=== PATIENT | male | born 1970 | race Caucasian/White ===

== ENCOUNTER → 2016-09-01 | Outpatient (CLI) | payer MEDICARE ==
[2014-02-16 17:00] VITALS: BP 128/79
[~2016-09-01] MED LIST: DOCU-27 PO; FENT1PAT15 TD; GADOBUTROL 7.5 MMOL/7.5 ML VIAL IV ONE; GLUC1TAB32 PO; MAGN400C PO; META800T PO; META800T21 PO; METH-38 PO; MULT-460 PO; OMEG-33 PO; OXYC-244 PO; OXYC-250 PO; TOPI100T90 PO; TOPI25TA32 PO
--- NOTE | 2016-09-01 13:45 | KCIC ---
PROCEDURE MRI cervical spine without and with contrast. HISTORY Spondylosis, multiple surgeries, mild neck pain, left hand numbness TECHNIQUE Multiplanar, multi sequential pre and post contrast MR imaging was performed of the cervical spine. Contrast: 13 cc Gadavist COMPARISON June 29, 2014 FINDINGS There again has been anterior cervical fusion at C4, C5, C6. Exam does not accurately evaluate integrity of hardware. There are incorporated interbody grafts at C4-5 and C5-C6. There again has been posterior decompression C3 through C7. There is also multilevel posterior fusion hardware with posterior lateral mass screws at C3, C4, C5, and C6 attached to vertical rods as seen previously. There is again nonenhancing T2 and STIR hyperintense signal abnormality of the cord at C5 and C6 not associated with enhancement most compatible with myelomalacia. There is no new significant marrow edema. There is no new abnormality of the cervical medullary junction. Cervical vertebral body stature and AP alignment are unchanged. C2-3: There is again facet degenerative change. Spinal canal is adequate. There is suspected mild neural foramina compromise bilaterally due to facet and uncovertebral degenerative change. C3-C4: Spinal canal and neural foramina are adequate. There is mild right uncovertebral degenerative change. C4-5: Neural foramina and spinal canal are adequate. C5-C6: Spinal canal and neural foramina are adequate. C6-7: Spinal canal remains adequate. There is likely mild narrowing of the left neural foramen by osteophytes, right neural foramen not obviously narrowed. C7-T1: Spinal canal is adequate. There is facet degenerative change. There is possible mild narrowing of the left neural foramen, right neural foramen not significantly narrowed. IMPRESSION There again has been anterior cervical fusion C4, C5, C6, also posterior fusion hardware C3 to C6-7 and also posterior decompression C3-C7. There is no new significant cervical spinal stenosis. There is suspected mild neural foramina compromise as stated. There are again foci of myelomalacia of the cervical cord. Electronically signed by: Parker Calzada MD (Sep 01, 2016 13:44:10)
== END | disposition home or self-care (01) ==
LOC: KCIC MRI 12:14
PROVIDERS: ATTEND Neurological Surgery
DX: M47.892 Other spondylosis, cervical region (principal)
CPT/HCPCS: 72156; A9585

== ENCOUNTER → 2016-09-04 | Outpatient (CLI) | payer MEDICARE ==
[2014-02-16 17:00] VITALS: BP 128/79
--- NOTE | 2016-09-04 14:06 | KCIC ---
MR LUMBAR SPINE HISTORY:Reason For StudyReason: LUMBAR RADICULOPATHY / Spl. Instructions: Prev KCIC / History: Prev surgery. LBP with worsening right leg weakness. 13cc Gadavist COMPARISON: MRI lumbar spine from November 21, 2013 Technique: Sagittal T2, sagittal STIR, and sagittal T1-weighted images were obtained. Additional axial T1 and T2 weighted imaging was also performed. Post contrast T1 weighted images were performed after intravenous administration of gadolinium based contrast. FINDINGS: There is very subtle grade 1 anterolisthesis of L5 on S1. Alignment and curvature is otherwise within normal limits. There is no compression fracture or deformity. Bone marrow signal is within normal limits. The conus terminates normally at the level of L1. Visualized intra-abdominal contents are within normal limits. No abnormal intrathecal enhancement. At L5-S1 there is very subtle grade 1 degenerative anterolisthesis from bilateral L5 pars defects. This results in mild bilateral foraminal narrowing. At L4-L5 there has been performance of a laminectomy. There is a small amount of enhancing tissue adjacent to the descending left L5 nerve could represent epidural fibrosis. There is bilateral facet arthropathy which causes encroachment of the bilateral foramina resulting in mild to moderate bilateral foraminal narrowing. At L3-L4 there is mild bilateral foraminal narrowing from mild facet arthropathy. Impression: - There is subtle grade 1 anterolisthesis of L5 on S1 with bilateral L5 pars defects. This results in bilateral mild neural foraminal narrowing. - There is mild to moderate bilateral foraminal narrowing at L4-5 from facet arthropathy which encroaches upon the foramina. There is also a small amount of enhancing tissue in the left ventral epidural space which could represent epidural fibrosis. Electronically signed by: Rick Kat (Sep 04, 2016 14:04:57)
== END | disposition home or self-care (01) ==
LOC: KCIC MRI 12:10
PROVIDERS: ATTEND Neurological Surgery
DX: M54.16 Radiculopathy, lumbar region (principal)
CPT/HCPCS: 72158; A9585

== ENCOUNTER 2017-01-27 13:03 | Inpatient (IN) | payer MEDICARE ==
[~2017-01-27] VITALS: Ht 193 cm; Wt 131.7 kg
[~2017-01-27 13:03] MED LIST changes: +DOCU-109 PO; -DOCU-27 PO; -GADOBUTROL 7.5 MMOL/7.5 ML VIAL IV ONE; +META-21 PO; -META800T21 PO; -OXYC-244 PO; -OXYC-250 PO; +OXYC-327 PO; +OXYC-328 PO; +TOPI100T8 PO; -TOPI100T90 PO; -TOPI25TA32 PO; +TOPI25TA52 PO
[2017-01-27 14:37] LABS: BASO # 0.1 x10^3/uL (0.0-0.2); BASO % 1 % (0-3); EOS % 1 % (0-3); HEMATOCRIT 52.6 % (39.0-53.0); HEMOGLOBIN 17.7 g/dL (13.0-17.5); LYMPH # 1.9 x10^3/uL (1.0-4.8); LYMPH % 25 % (24-48); MEAN CORPUSCULAR HEMOGLOBIN 30 pg (25-35); MEAN CORPUSCULAR HGB CONC 34 g/dL (31-37); MEAN CORPUSCULAR VOLUME 90 fL (79-100); MONO % 5 % (0-9); NEUT % 68 % (31-73); PLATELET COUNT 234 x10^3/uL (140-400); RED BLOOD COUNT 5.83 x10^6/uL (4.30-5.70); RED CELL DISTRIBUTION WIDTH 13.3 % (11.5-14.5); WHITE BLOOD COUNT 7.4 x10^3/uL (4.0-11.0)
[2017-01-27 14:53] LABS: CALCIUM 9.4 mg/dL (8.5-10.1); CREATININE 0.9 mg/dL (0.7-1.3); GFR 91.3; POTASSIUM 3.8 mmol/L (3.5-5.1)
[2017-01-27] MEDS ORDERED: MORPHINE SULFATE 4 MG/ML DISP.SYRIN. IV ONE ×2 (15:00→16:00)
--- NOTE | 2017-01-27 15:34 | EKG ---
[facility] [address] [place] [address] Test Date: 2017-01-27 Test Time: 14:45:39 Pat Name: NICO GIBSON Department: Room: Gender: M [employer] Specialist: : 1970 Requested By: Anna HANCOCK Order Number: [id number] Reading MD: Alejandro Cedillo Measurements Intervals [place] Rate: 61 P: 11 VT: 216 QRS: -87 QRSD: 88 T: 39 QT: 400 QTc: 404 Interpretive Statements SINUS RHYTHM RBBB Electronically Signed On 02-02-2017 8:35:51 CDT by Alejandro Cedillo
--- NOTE | 2017-01-27 15:48 | RAD ---
Exam performed: CT scan of the head and cervical spine without contrast. Date of Service: 01/27/17 Comparison:CT cervical spine from 07/29/12 Clinical History: Weakness Technique: Helical acquisitions are obtained from the foramen magnum to the vertex without intravenous administration of contrast. In addition helical acquisitions are obtained through the cervical spine. Sagittal and coronal reformatted images are obtained and reviewed. CT scan head findings: The ventricular system is midline without evidence of dilatation. Normal alfaro-white differentiation is maintained. There is no extra axial fluid collection, intraparenchymal hemorrhage or mass lesion. The visualized orbits, paranasal sinuses and the mastoid air cells are clear. The calvarium is intact. Impression: 1. Normal non-contrast CT of the brain. End impression CT cervical spine findings: Straightening of the cervical curvature. There are postoperative changes of anterior cervical fusion involving C4, C5 and C6 level with anterior plate and bilateral screws. Wide laminectomies are seen at C3-C6. The vertebral body heights are maintained. There is narrowing of C3/4 and C6/7 disc spaces. Near bony fusion of C4/5, C5/6 noted. There is no alma rosa or retrolisthesis. There are no fractures. No prevertebral soft tissue swelling is identified. No definite lymphadenopathy or masses are seen within the neck. The visualized thyroid and salivary glands appears preserved. Impression: Postoperative changes of anterior spinal fusion with bilateral laminectomies at C3-C6. No acute abnormality seen in the CT scan cervical spine. PQRS Compliance Statement: One or more of the following individualized dose reduction techniques were utilized for this examination: 1. Automated exposure control 2. Adjustment of the mA and/or kV according to patient size 3. Use of iterative reconstruction technique
--- NOTE | 2017-01-27 16:19 | PHYS DOC ---
Past Medical History Past Medical History: Other Additional Past Medical Histor: chronic back pain Past Surgical History: Appendectomy, Other Additional Past Surgical Histo: carpel tunnel,rt elbow, left shoulder, 2 upper back surgery, one lower back Alcohol Use: None Drug Use: None Adult General Chief Complaint Chief Complaint: NEURO SYMPTOMS/DEFICITS [facility] HPI Patient is a 46 year old [f__sex] who presents with [] Review of Systems Review of Systems Constitutional: Denies fever or chills [] Eyes: Denies change in visual acuity, redness, or eye pain [] HENT: Denies nasal congestion or sore throat [] Respiratory: Denies cough or shortness of breath [] Cardiovascular: No additional information not addressed in HPI [] GI: Denies abdominal pain, nausea, vomiting, bloody stools or diarrhea [] : Denies dysuria or hematuria [] Musculoskeletal: Denies back pain or joint pain [] Integument: Denies rash or skin lesions [] Neurologic: Denies headache, focal weakness or sensory changes [] Endocrine: Denies polyuria or polydipsia [] Current Medications Current Medications Current Medications Medications (Trade) Dose Ordered Sig/[facility] Start Time Stop Time Status Last Admin Dose Admin Acetaminophen (Tylenol) 650 mg PRN Q4HRS PRN 01/27/17 17:00 01/28/17 16:59 Morphine Sulfate 2 mg PRN Q2HR PRN 01/27/17 17:00 01/28/17 16:59 Nitroglycerin (Nitrostat) 0.4 mg PRN Q5MIN PRN 01/27/17 17:00 01/28/17 16:59 Ondansetron HCl (Zofran) 4 mg PRN Q8HRS PRN 01/27/17 17:00 01/28/17 16:59 Allergies Allergies Allergies Coded Allergies Type Severity Reaction Last Updated Verified No Known Drug Allergies 02/16/14 No Physical Exam Physical Exam Constitutional: Well developed, well nourished, no acute distress, non-toxic appearance. [] HENT: Normocephalic, atraumatic, bilateral external ears normal, oropharynx moist, no oral exudates, nose normal. [] Eyes: PERRLA, EOMI, conjunctiva normal, no discharge. [] Neck: Normal range of motion, no tenderness, supple, no stridor. [] Cardiovascular:Heart rate regular rhythm, no murmur [] Lungs & Thorax: Bilateral breath sounds clear to auscultation [] Abdomen: Bowel sounds normal, soft, no tenderness, no masses, no pulsatile masses. [] Skin: Warm, dry, no erythema, no rash. [] Back: No tenderness, no CVA tenderness. [] Extremities: No tenderness, no cyanosis, no clubbing, ROM intact, no edema. [] Neurologic: Alert and oriented X 3, normal motor function, normal sensory function, no focal deficits noted. [] Psychologic: Affect normal, judgement normal, mood normal. [] Current Patient Data Vital Signs Vital Signs Date Time Temp Pulse Resp B/P (MAP) Pulse Ox O2 Delivery O2 Flow Rate FiO2 01/27/17 16:15 20 98 Room Air 01/27/17 15:46 76 120/81 (94) 01/27/17 13:15 98.9 98.9 Lab Values Laboratory Tests Test 01/27/17 13:15 White Blood Count 7.4 x10^3/uL (4.0-11.0) Red Blood Count 5.83 x10^6/uL (4.30-5.70) H Hemoglobin 17.7 g/dL (13.0-17.5) H Hematocrit 52.6 % (39.0-53.0) Mean Corpuscular Volume 90 fL (79-100) Mean Corpuscular Hemoglobin 30 pg (25-35) Mean Corpuscular Hemoglobin Concent 34 g/dL (31-37) Red Cell Distribution Width 13.3 % (11.5-14.5) Platelet Count 234 x10^3/uL (140-400) Neutrophils (%) (Auto) 68 % (31-73) Lymphocytes (%) (Auto) 25 % (24-48) Monocytes (%) (Auto) 5 % (0-9) Eosinophils (%) (Auto) 1 % (0-3) Basophils (%) (Auto) 1 % (0-3) Neutrophils # (Auto) 5.0 x10^3uL (1.8-7.7) Lymphocytes # (Auto) 1.9 x10^3/uL (1.0-4.8) Monocytes # (Auto) 0.4 x10^3/uL (0.0-1.1) Eosinophils # (Auto) 0.1 x10^3/uL (0.0-0.7) Basophils # (Auto) 0.1 x10^3/uL (0.0-0.2) Sodium Level 141 mmol/L (136-145) Potassium Level 3.8 mmol/L (3.5-5.1) Chloride Level 104 mmol/L (98-107) Carbon Dioxide Level 26 mmol/L (21-32) Anion Gap 11 (6-14) Blood Urea Nitrogen 11 mg/dL (8-26) Creatinine 0.9 mg/dL (0.7-1.3) Estimated GFR (Cockcroft-Gault) 91.3 Glucose Level 126 mg/dL (70-99) H Calcium Level 9.4 mg/dL (8.5-10.1) Troponin I Quantitative < 0.017 ng/mL (0.000-0.055) Laboratory Tests 01/27/17 13:15 Laboratory Tests 01/27/17 13:15 EKG EKG 1441 SR, 61, no stemi, TWI V1 and V2[] Radiology/Procedures Radiology/Procedures no acute findings on CT[] Course & Med Decision Making Course & Med Decision Making Pertinent Labs and Imaging studies reviewed. (See chart for details) [] Dragon Disclaimer Dragon Disclaimer This electronic medical record was generated, in whole or in part, using a voice recognition dictation system. Departure Departure Impression: Primary Impression: Chest pain Additional Impressions: Abnormal EKG Chronic back pain Left arm weakness Disposition: ADMITTED INPATIENT Admitting Physician: La Ho Condition: STABLE Referrals: JOSE ESCAMILLA MD (PCP) Problem Qualifiers Anna HANCOCK MD Jan 27, 2017 16:19
[2017-01-27] MEDS ORDERED: ONDANSETRON PF 4 MG/2 ML VIAL. IV PRN (17:00)
[2017-01-27] MEDS ORDERED: ACETAMINOPHEN 325 MG TABLET. PO PRN (17:00)
[2017-01-27] MEDS ORDERED: MORPHINE SULFATE 2 MG/ML DISP.SYRIN. IV PRN (17:00)
--- NOTE | 2017-01-27 17:21 | RAD ---
AP portable chest radiograph 01/27/2017 Clinical history: Chest pain since earlier today. An AP portable erect digital radiograph of the chest was obtained. Stabilizing rods, pedicle screws, anterior plate and bone screws overlies the mid and lower cervical spine. The cardiac and mediastinal silhouettes are within normal limits in size and configuration. No acute pulmonary infiltrate is seen. No pleural effusion or pneumothorax is noted. The osseous structures are grossly intact. Impression: No acute abnormality is seen.
[2017-01-27] MEDS ORDERED: POLYETHYLENE GLYCOL 3350 17 GM PACKET. PO PRN (17:30)
[2017-01-27] MEDS: NITROGLYCERIN SUBLINGUAL 0.4 MG BOTTLE OF 25. SL PRN ×2 (17:39→17:54)
[2017-01-27] MEDS ORDERED: ASPIRIN CHEWABLE 81 MG TABLET. PO ONE (17:45)
--- NOTE | 2017-01-27 17:55 | PDOC1 ---
History and Physical Date of Admission Date of Admission DATE: 01/27/17 TIME: 17:50 Identification/Chief Complaint Chief Complaint shoulder pain, back pain, chest pain, hand weakness Problems: Source Source: Caregiver, Chart review, Patient History of Present Illness History of Present Illness back pain and chestpain He fell about 2 weeks ago, and has had back pain and left shoulder and near neck pain since. He feels like pain under scapula on the left, pain had gotten worse with light massage at home. He has chronic back pain, is on disability for leg weakness, and has seen Dr. Butler before. Today, pain is worse, 9./10 left back to left anterior chest, not worse with palpation, and he also has new left hand weakness. He has new numbess on a narrow band of his left hand and arm. About 1cm ribbon area of numbness and tingling running appox up the T7 dermatome. feels a little improved in the ER Past Medical History Cardiovascular: No pertinent hx Pulmonary: No pertinent hx GI: No pertinent hx Heme/Onc: No pertinent hx Musculoskeletal: low back pain, Osteoarthritis, Muscle atrophy, Stiffness Rheumatologic: No pertinent hx Infectious disease: No pertinent hx ENT: No pertinent hx Renal/: No pertinent hx Endocrine: No pertinent hx Dermatology: No pertinent hx Past Surgical History Past Surgical History: Other Family History Family History: No Significant Social History ALCOHOL: rare Drugs: None Current Problem List Problem List Problems Medical Problems: (1) Abnormal EKG Status: Acute (2) Chest pain Status: Acute (3) Chronic back pain Status: Acute (4) Left arm weakness Status: Acute Problems: Current Medications Current Medications Current Medications Morphine Sulfate 4 mg 1X ONCE IV Last administered on 01/27/17 15:02; Start 01/27/17 at 15:00; Stop 01/27/17 at 15:01; Status DC Morphine Sulfate 4 mg 1X ONCE IV Last administered on 01/27/17 16:15; Start 01/27/17 at 16:00; Stop 01/27/17 at 16:04; Status DC Ondansetron HCl (Zofran) 4 mg PRN Q8HRS PRN IV NAUSEA/VOMITING; Start 01/27/17 at 17:00; Stop 01/28/17 at 16:59 Morphine Sulfate 2 mg PRN Q2HR PRN IV PAIN; Start 01/27/17 at 17:00; Stop 01/28 at 16:59 Acetaminophen (Tylenol) 650 mg PRN Q4HRS PRN PO FEVER; Start 01/27/17 at 17:00 ; Stop 01/28/17 at 16:59 Nitroglycerin (Nitrostat) 0.4 mg PRN Q5MIN PRN SL CHEST PAIN Last administered on 01/27/17t 17:39; Start 01/27/17 at 17:00; Stop 01/28/17 at 16:59 Docusate Sodium (Colace) 100 mg DAILY PO ; Start 01/28/17 at 09:00; Status UNV Fentanyl (Duragesic 25mcg/ Hr Patch) 1 patch Q3DAYS TD ; Start 01/30/17 at 09:00 ; Status UNV Metaxalone (Skelaxin) 800 mg BID PO ; Start 01/27/17 at 21:00; Status UNV Metaxalone (Skelaxin) 800 mg TID PO ; Start 01/27/17 at 21:00; Status UNV Methocarbamol (Robaxin) 750 mg QID PO ; Start 01/27/17 at 21:00; Status UNV Oxycodone/ Acetaminophen (Percocet 10/325) 2 tab QID PO ; Start 01/27/17 at 21: 00; Status UNV Oxycodone/ Acetaminophen (Percocet 7.5/ 325) 1 tab BID PO ; Start 01/27/17 at 21 :00; Status UNV Topiramate (Topamax) 100 mg DAILY PO ; Start 01/28/17 at 09:00; Status UNV Polyethylene Glycol (miraLAX PACKET) 17 gm PRN DAILY PRN PO CONSTIPATION; Start 01/27/17 at 17:30; Status UNV Polyethylene Glycol (miraLAX PACKET) 17 gm DAILY PO ; Start 01/28/17 at 09:00; Status UNV Aspirin (Children'S Aspirin) 324 mg 1X ONCE PO ; Start 01/27/17 at 17:45; Stop 01/27/17 at 17:46; Status DC Active Scripts Active Reported Robaxin-750 (Methocarbamol) 750 Mg Tablet Unknown Dose PO QID Topamax (Topiramate) 25 Mg Tablet Unknown Dose PO BID Skelaxin (Metaxalone) 800 Mg Tablet 1 Tab PO TID Percocet 10-325 Mg Tablet (Oxycodone/Acetaminophen) 1 Each Tablet 2 Tab PO QID Colace (Docusate Sodium) 100 Mg Capsule 100 Mg PO Metaxalone 800 Mg Tablet 800 Mg PO BID [place] 3 1,000 Mg Softgel ([place]-3 Fatty Acids/Fish Oil) 1 Each Capsule 1 Each PO DAILY06 Magnesium (Magnesium Oxide) 400 Mg Capsule 1 Cap PO Flexi Joint Tablet (Gluc Garcia/Msm/Chondro Garcia A/C/Mn) 1 Each Tablet 1 Each PO DAILY06 Multiple Vitamin (Multivitamin With Minerals) 1 Each Tablet 1 Each PO DAILY05 Percocet 7.5-325 Mg Tablet (Oxycodone/Acetaminophen) 1 Each Tablet 1 Each PO BID FENTANYL 25mcg/hr (Fentanyl) 1 Each Patch.td72 1 Each TD Q3DAYS Topiramate 100 Mg Tablet 100 Mg PO DAILY Allergies Allergies: Coded Allergies: No Known Drug Allergies (Unverified , 02/16/14) ROS General: No: Chills, Night Sweats, Fatigue, Malaise, Appetite, Other PSYCHOLOGICAL ROS: No: Anxiety, Behavioral Disorder, Concentration difficultie , Decreased libido, Depression, Disorientation, Hallucinations, Hostility, Irritablity, Memory difficulties, Mood Swings, Obsessive thoughts, Physical abuse, Sexual abuse, Sleep disturbances, Suicidal ideation, Other Eyes: No Blurry vision, No Decreased vision, No Double vision, No Dry eyes, No Excessive tearing, No Eye Pain, No Itchy Eyes, No Loss of vision, No Photophobia , No Scotomata, No Uses contacts, No Uses glasses, No Other Respiratory: No: Cough, Hemoptysis, Orthopnea, Pleuritic Pain, Shortness of breath, SOB with excertion, Sputum Changes, Stridor, Tachypnea, Wheezing, Other Cardiovascular: No Chest Pain, No Palpitations, No Orthopnea, No Paroxysmal Noc. Dyspnea, No Edema, No Lt Headedness, No Other Gastrointestinal: No Nausea, No Vomiting, No Abdominal Pain, No Diarrhea, No Constipation, No Melena, No Hematochezia, No Other Musculoskeletal: Yes Gait Disturbance, Yes Joint Pain, Yes Joint Stiffness, Yes Joint Swelling, Yes Muscle Pain, Yes Muscular Weakness, Yes Pain In: (back, shoulder) Neurological: Yes Gait Disturbance, Yes Numbness/Tingling, No Behavorial Changes, No Bowel/Bladder ControlChng, No Confusion, No Dizziness, No Headaches, No Impaired Coord/balance, No Memory Loss, No Seizures , No Speech Problems, No Tremors, No Visual Changes, No Weakness, No Other Skin: Yes Dry Skin, No Eczema, No Hair Changes, No Lumps, No Mole Changes, No Mottling, No Nail Changes, No Pruritus, No Rash, No Skin Lesion Changes, No Other, No Acne Physical Exam General: Alert, Oriented X3, Cooperative, mild distress HEENT: EOMI, Mucous membr. 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, some numbness near T7 line down arm dermatome) Vitals Vitals Vital Signs Date Time Temp Pulse Resp B/P (MAP) Pulse Ox O2 Delivery O2 Flow Rate FiO2 01/27/17 17:39 65 144/97 01/27/17 16:15 20 98 Room Air 01/27/17 13:15 98.9 98.9 Labs Labs Laboratory Tests Test 01/27/17 13:15 White Blood Count 7.4 x10^3/uL (4.0-11.0) Red Blood Count 5.83 x10^6/uL (4.30-5.70) Hemoglobin 17.7 g/dL (13.0-17.5) Hematocrit 52.6 % (39.0-53.0) Mean Corpuscular Volume 90 fL (79-100) Mean Corpuscular Hemoglobin 30 pg (25-35) Mean Corpuscular Hemoglobin Concent 34 g/dL (31-37) Red Cell Distribution Width 13.3 % (11.5-14.5) Platelet Count 234 x10^3/uL (140-400) Neutrophils (%) (Auto) 68 % (31-73) Lymphocytes (%) (Auto) 25 % (24-48) Monocytes (%) (Auto) 5 % (0-9) Eosinophils (%) (Auto) 1 % (0-3) Basophils (%) (Auto) 1 % (0-3) Neutrophils # (Auto) 5.0 x10^3uL (1.8-7.7) Lymphocytes # (Auto) 1.9 x10^3/uL (1.0-4.8) Monocytes # (Auto) 0.4 x10^3/uL (0.0-1.1) Eosinophils # (Auto) 0.1 x10^3/uL (0.0-0.7) Basophils # (Auto) 0.1 x10^3/uL (0.0-0.2) Sodium Level 141 mmol/L (136-145) Potassium Level 3.8 mmol/L (3.5-5.1) Chloride Level 104 mmol/L (98-107) Carbon Dioxide Level 26 mmol/L (21-32) Anion Gap 11 (6-14) Blood Urea Nitrogen 11 mg/dL (8-26) Creatinine 0.9 mg/dL (0.7-1.3) Estimated GFR (Cockcroft-Gault) 91.3 Glucose Level 126 mg/dL (70-99) Calcium Level 9.4 mg/dL (8.5-10.1) Troponin I Quantitative < 0.017 ng/mL (0.000-0.055) Laboratory Tests Test 01/27/17 13:15 White Blood Count 7.4 x10^3/uL (4.0-11.0) Red Blood Count 5.83 x10^6/uL (4.30-5.70) Hemoglobin 17.7 g/dL (13.0-17.5) Hematocrit 52.6 % (39.0-53.0) Mean Corpuscular Volume 90 fL (79-100) Mean Corpuscular Hemoglobin 30 pg (25-35) Mean Corpuscular Hemoglobin Concent 34 g/dL (31-37) Red Cell Distribution Width 13.3 % (11.5-14.5) Platelet Count 234 x10^3/uL (140-400) Neutrophils (%) (Auto) 68 % (31-73) Lymphocytes (%) (Auto) 25 % (24-48) Monocytes (%) (Auto) 5 % (0-9) Eosinophils (%) (Auto) 1 % (0-3) Basophils (%) (Auto) 1 % (0-3) Neutrophils # (Auto) 5.0 x10^3uL (1.8-7.7) Lymphocytes # (Auto) 1.9 x10^3/uL (1.0-4.8) Monocytes # (Auto) 0.4 x10^3/uL (0.0-1.1) Eosinophils # (Auto) 0.1 x10^3/uL (0.0-0.7) Basophils # (Auto) 0.1 x10^3/uL (0.0-0.2) Sodium Level 141 mmol/L (136-145) Potassium Level 3.8 mmol/L (3.5-5.1) Chloride Level 104 mmol/L (98-107) Carbon Dioxide Level 26 mmol/L (21-32) Anion Gap 11 (6-14) Blood Urea Nitrogen 11 mg/dL (8-26) Creatinine 0.9 mg/dL (0.7-1.3) Estimated GFR (Cockcroft-Gault) 91.3 Glucose Level 126 mg/dL (70-99) Calcium Level 9.4 mg/dL (8.5-10.1) Troponin I Quantitative < 0.017 ng/mL (0.000-0.055) VTE Prophylaxis Ordered VTE Prophylaxis Devices: No VTE Pharmacological Prophylaxi: Yes Assessment/Plan Assessment/Plan shoulder pain, back pain, chest pain, hand weakness r/o Angina, check labs for ACS, check lipids, check echo left hand weakness, s/p CT scan brain and neck, consider MRI, consider nerve impingement peripheral of spinal column, consult Physiatry and neuro, presentation is odd. obesity, BMI 36 chronic back pain w/ debility, home meds, fentanyl patch, lortab, metalozone , robaxin, HEATH E[place] MD Jan 27, 2017 17:55
[2017-01-27 19:00] VITALS: BP 110/81
[2017-01-27] MEDS: METHOCARBAMOL 750 MG TABLET PO SCH (19:43)
[2017-01-27 19:48] VITALS: BP 110/81
[2017-01-27] MEDS ORDERED: oxyCODONE/APAP 7.5/325 1 TAB TABLET PO SCH (21:00)
[2017-01-27] MEDS ORDERED: oxyCODONE/APAP 10/325 1 TAB TABLET PO SCH (21:00)
[2017-01-27] MEDS ORDERED: METAXALONE 800 MG TABLET PO SCH ×2 (21:00)
[2017-01-27] MEDS: MORPHINE SULFATE 4 MG/ML DISP.SYRIN. IV PRN (22:16)
[2017-01-27 22:51] VITALS: BP 115/84
[2017-01-28] MEDS: MORPHINE SULFATE 4 MG/ML DISP.SYRIN. IV PRN ×5 (01:28→16:50)
[2017-01-28 02:33] VITALS: BP 114/65
--- NOTE | 2017-01-28 04:10 | ACF ---
Admission Forms Criteria CARDIOLOGY GRG Clinical Indications for Admission to Inpatient Care ( [place]/check or initial the applicable condition/criteria) Hospital admission is needed for appropriate care of the patient because of ANY ONE of the following: [ ] I. Hemodynamic instability as indicated by ALL of the following (1)(2)(3) (4)(5)(6)(7)(8)(9)(10) [ ]a) Vital sign abnormality not readily corrected by appropriate treatment with 12-24 hours for ANY ONE: [ ]i) Hypotension that persists despite appropriate treatment (eg, volume repletion) [ ]ii) Tachycardiathat persists despite appropriate tx ( e.g., analgesia, fluids, sedation as indicated [ ]iii) Orthostatic vital sign changes that persists despite appropriate treatment (eg, volume repletion) [ ]b) Vital sign abnormailty that is severe indicated by ANY ONE of the following: [ ]i) Inadequate perfusion indicated by ANY ONE of the following: [ ] 1) Lactic acidosis (> 2 mmol/L) [ ] 2) New abnormal capillary refill (> 3 seconds) [ ] 3) Reduced urine output [ ] 4) New altered mental status [ ] 5) Myocardial Ischemia [ ] 6) Other metabolic acidosis (arterial pH <7.35 ) not otherwise explained. [ ]ii) Mean arterial pressure[A] less than 60 mm Hg [ ]iii) Mean arterial pressure[A] less than 70 mm Hg after 30 minutes of appropriate treatment (eg, fluid resuscitation) [ ]iv) Sustained heart rate greater than 120 beats per minute in adult or child 6 years or older[B] [ ]v) IV inotropic or vasopressor medication required to maintain adequate blood pressure or perfusion [ ] II. Severe heart failure as indicated by ANY ONE of the following(17)(18) [ ]a) Respiratory distress [ ]b) Hypotension [ ]c) Debilitating anasarca refractory to therapy (eg, tissue breakdown with infection)[C](19) [ ]d) Cardiac arrhythmias of immediate concern [ ]e) Myocardial ischemia [ ] III. Cardiac arrhythmias or findings of immediate concern indicated by ANY ONE of the following (21)(22): [ ] a) Heart rhythms that are inherently dangerous or unstable indicated by ANY ONE of the following (23)(24)(25): [ ] i) Resuscitated ventricular fibrillation or cardiac arrest [ ] ii) Ventricular escape rhythm [ ] iii) Sustained ventricular tachycardia (30 seconds or more of ventricular rhythm at greater than 100 beats per minute) [ ] iv) Nonsustained ventricular tachycardia and ANY ONE of the following: [ ] 1) Suspected cardiac ischemia as cause or consequence of ventricular tachycardia [ ] 2) Acute myocarditis [ ] b) Unstable cardiac conduction defects indicated by ANY ONE of the following(25)(26)(27) [ ] i) Type II second-degree atrioventricular block [ ]ii) Third-degree atrioventricular block [ ]iii) New-onset left bundle branch block with suspected myocardial ischemia [ ]c) Any heart rhythm and ANY ONE of the following (23)(24)(28)(29) (30) [ ] i) Continuous long-term ECG monitoring needed (e.g., initiation of drug requiring monitoring for more than 24 hours) [ ] ii) Patient has automatic implanted cardioverter defibrillator that is repeatedly firing, malfunctioning, or in need of immediate adjustment of settings beyond the scope of ambulatory or observation care [ ]d) Heart rhythms of concern due to ANY ONE of the following: [ ] i) Hypotension [ ] ii) Respiratory distress [ ] iii) Association with other significant symptoms (e.g., bradycardia with syncope or ongoing dizziness, supraventricular tachycardia with chest pain (28)(29)(31) [ ] IV. Monitoring for cardiac contusion beyond the scope of observation care needed [A](32)(33)(34) [ ] V. Surgical or device complication (e.g., valve replacement complication , ICD disfunction or pacemaker dysfunction) (49)(50)(51)(52)(53)(54) [ ] . Inpatient palliative care needed. [F](51)(52) Also use Inpatient Palliative Care Criteria [ ] VII. Nonbacterial thrombotic (marantic) endocarditis(43)(44)(55)(56)(57) [X] VIII. Cardiology condition, symptom, or finding for which emergency and observation care has failed or are not considered appropriate. [ ] IX. Acute valvular disease requiring inpatient as indicated by ANY ONE of the following (40)(41) [ ]a) Acute valvular regurgitation (42) [ ]b) Noninfectious valvulitis (43)(44) [ ]c) Obstructive valve thrombosis (45)(46) [ ]d) Paravalvular leak(47)(48) [ ]e) Other significant valvular disorder remaining after emergency or observation level of care (as appropriate) [ ]X. Pericardial disease requiring inpatient treatment as indicated by ANY ONE of the following (35)(36)(37)(38) [ ]a) Suspected tamponade [ ]b) Hemopericardium [ ]c) Other significant pericardial disorder remaining after emergency or observation level of care (as appropriate)(39) [ ] XI. Cardiac ischemia beyond scope of emergency and observation care. [ ] XII. Cyanotic heart disease requiring inpatient care as indicated by 1 or more of the following(58)(59)(60): [ ]a) Acute onset of hypoxemia [ ]b) Exacerbation [ ] XIII. Hypertension requiring inpatient treatment as indicated by ANYONE of the following(11)(12)(13)(14): [ ]a) Severe hypertension (SBP greater than 180 mm Hg or DBP greater than 110 mm Hg, or greater than the 95th percentile for age, gender, and height in pediatric patients) that cannot be controlled (eg, to SBP less than 160 mm Hg and DBP less than 100 mm Hg) by emergency department or observation care treatment(15) [ ]b) Acute end organ damage secondary to hypertension (SBP greater than 140 mm Hg or DBP greater than 90 mm Hg) as indicated by ANYONE of the following: [ ] i) Hypertensive encephalopathy (eg, Altered mental status)(16) [ ] ii) Cerebral infarction [ ] iii) Intracranial hemorrhage [ ] iv) Myocardial ischemia or infarction [ ] v) Heart failure (eg, pulmonary edema) [ ] vi) Aortic dissection [ ] vii) Increased creatinine (new) with reduction of more than 50% in estimated glomerular filtration rate from baseline [ ] viii) Papilledema [ ] ix) Retinal hemorrhage [ ] x) Microangiopathic hemolytic anemia [ ] xi) Seizure [ ] xii) Other significant finding secondary to hypertension [ ] XIV. Complications of transplanted heart indicated by ANY ONE of the following(61): [ ]a) Acute graft rejection requiring inpatient management (eg, intravenous imunosuppression)(62)(63) [ ]b) Acute graft heart failure indicated by ANY ONE of the following(64): [ ] i) Hemodynamic instability [ ] ii) Cardiac arrhythmias of immediate concern [ ] iii) Pulmonary edema that is very severe (eg, mechanical ventilation needed, imminent or likely, need for 100% oxygen to keep oxygen saturation above 90%) [ ] iv) Pulmonary edema that is persistent as indicated by ALL of the following: [ ] 1) New need for oxygen therapy to keep oxygen saturation above 90 % (or increased FiO2 need from baseline) [ ] 2) Has not improved sufficiently with emergency department or observation care IV diuretics or other heart failure treatments[E]. [ ] iv) Altered mental status that is severe or persistent [ ] iv) Increased creatinine (new on laboratory test) with reduction of more than 50% in estimated glomerular filtration rate from baseline [ ] iv) Progressively (ongoing) rising creatinine (known from past laboratory test) with reduction of more than 25% in estimated glomerular filtration rate from baseline [ ] iv) Acute renal failure [ ] iv) Acute peripheral ischemia (eg, examination shows pulseless, cool, mottled, or cyanotic extremity) [ ] iv) Pulmonary artery catheter monitoring needed [ ] iv) Other sign or symptom of heart failure requiring inpatient treatment (ie, too severe or not responsive to outpatient and observation care treatment) [ ]c) Infection requiring inpatient management (eg, Hemodynamic instability, need for intravenous antimicrobial treatment)(66)(67)(68)(69)(70) [ ]d) Cardiac allograft vasculopathy requiring inpatient management (eg evidence of cardiacischemia)(71) [ ]e) Other complication of transplanted heart (eg, stroke, severe pulmonary hypertension, severe valvular dysfunction) requiring inpatient management(72) The original [facility] content created by [facility] has been revised. The portions of the content which have been revised are identified through the use of italic text, and [facility] has neither reviewed nor approved the modified material. All other unmodified content is copyright [facility]. Please see references footnoted in the original [facility] edition 2014 Admission Criteria Met?: Yes LEONA RIVAS Jan 28, 2017 04:10
[2017-01-28 05:50] LABS: BASO # 0.1 x10^3/uL (0.0-0.2); BASO % 1 % (0-3); EOS % 2 % (0-3); HEMATOCRIT 48.5 % (39.0-53.0); HEMOGLOBIN 16.8 g/dL (13.0-17.5); LYMPH % 41 % (24-48); MEAN CORPUSCULAR HEMOGLOBIN 31 pg (25-35); MEAN CORPUSCULAR HGB CONC 35 g/dL (31-37); MEAN CORPUSCULAR VOLUME 88 fL (79-100); MONO % 8 % (0-9); NEUT % 48 % (31-73); PLATELET COUNT 210 x10^3/uL (140-400); RED BLOOD COUNT 5.49 x10^6/uL (4.30-5.70); RED CELL DISTRIBUTION WIDTH 13.8 % (11.5-14.5); WHITE BLOOD COUNT 7.3 x10^3/uL (4.0-11.0)
[2017-01-28 06:13] LABS: CREATININE 0.9 mg/dL (0.7-1.3); GFR 91.3
[2017-01-28 06:15] LABS: CHOLESTEROL/HDL RATIO 6.4
[2017-01-28 07:00] VITALS: BP 108/67
[2017-01-28] MEDS: ENOXAPARIN 40 MG/0.4 ML SYRINGE. SQ SCH (08:16)
[2017-01-28] MEDS: POLYETHYLENE GLYCOL 3350 17 GM PACKET. PO SCH (09:00)
[2017-01-28] MEDS: TOPIRAMATE 25 MG TABLET. PO SCH (09:00)
[2017-01-28] MEDS ORDERED: fentaNYL 25MCG/HR PATCH 1 PATCH PATCH.TD72 TD SCH (09:00)
[2017-01-28] MEDS: DOCUSATE SODIUM 100 MG CAPSULE. PO SCH (09:00)
[2017-01-28] MEDS ORDERED: methylPREDNISolone 4 MG TABLET. PO SCH ×2 (09:00→12:30)
[2017-01-28] MEDS ORDERED: DOCUSATE SODIUM 100 MG CAPSULE. PO PRN (09:15)
[2017-01-28] MEDS ORDERED: ACETAMINOPHEN 325 MG TABLET. PO PRN (09:15)
[2017-01-28] MEDS ORDERED: hydrALAZINE 20 MG/ML VIAL. IVP PRN (09:15)
[2017-01-28] MEDS ORDERED: MORPHINE SULFATE 2 MG/ML DISP.SYRIN. IV PRN (09:15)
[2017-01-28] MEDS ORDERED: ONDANSETRON PF 4 MG/2 ML VIAL. IV PRN (09:15)
[2017-01-28] MEDS ORDERED: diazePAM 5 MG TABLET PO ONE (09:45)
[2017-01-28] MEDS ORDERED: fentaNYL 50MCG/HR PATCH 1 PATCH PATCH.TD72 TD SCH (10:00)
--- NOTE | 2017-01-28 10:48 | PDOC2 ---
LON ROYAL SCIENTIFIC SPECIALIST 01/28/17 1048: CARDIAC CONSULT DATE OF CONSULT Date of Consult DATE: 01/28/17 TIME: 10:40 REASON FOR CONSULT Reason for Consult: Chest pain REFERRING PHYSICIAN Referring Physician: Dr. Lugo SOURCE Source: Chart review, Patient HISTORY OF PRESENT ILLNESS HISTORY OF PRESENT ILLNESS This is 46 yo male, with a history of chronic neck and back problems, who presented with complaints of back and chest pain along with left arm/hand numbness and tingling. Patient reports serve upper back pain has been present for the last three weeks. Constant, stabbing in nature. Now radiating through to his chest. Worsened with movement/activity. Some relief obtained with lying down. Denies any associated dizziness, diaphoresis, palpitations, SOA, or nausea /vomiting. No recent WHITNEY. Yesterday, patient woke up with numbness/tingling down his left arm and in his left first and second fingers. Had difficulty using those fingers; were weak. Fells as if left arm is "." was concerned with these changes so he came into the ED for further evaluation and treatment. No prior h/o CAD or previous cardiac workup. Troponin series normal- AMI ruled out. EKG with t-wave inversion of V1 and V2. No previous for comparison. requesting echo to be conducted as it was previously discussed in the ED. Wanting to eat. PAST MEDICAL HISTORY Cardiovascular: No pertinent hx Pulmonary: No pertinent hx GI: No pertinent hx Heme/Onc: No pertinent hx Hepatobiliary: No pertinent hx Psych: Anxiety, Depression Musculoskeletal: Osteoarthritis, Other (DDD, spinal stenosis, lumbar radiculopathy, chronic neck and low back pain) Rheumatologic: No pertinent hx Infectious disease: No pertinent hx ENT: No pertinent hx Renal/: No pertinent hx Endocrine: No pertinent hx Dermatology: No pertinent hx PAST SURGICAL HISTORY Past Surgical History: Appendectomy, Hernia Repair, Other (cervical fusion, back sx) FAMILY HISTORY Family History: Diabetes SOCIAL HISTORY Smoke: Quit (6 years ago) ALCOHOL: none Drugs: None Lives: with Family CURRENT MEDICATIONS CURRENT MEDICATIONS Current Medications Medications (Trade) Dose Ordered Sig/Eliana Route PRN Reason Start Time Stop Time Status Last Admin Dose Admin Morphine Sulfate 4 mg 1X ONCE IV 01/27/17 15:00 01/27/17 15:01 DC 01/27/17 15:02 Morphine Sulfate 4 mg 1X ONCE IV 01/27/17 16:00 01/27/17 16:04 DC 01/27/17 16:15 Nitroglycerin (Nitrostat) 0.4 mg PRN Q5MIN PRN SL CHEST PAIN 01/27/17 17:00 01/28/17 16:59 01/27/17 17:54 Fentanyl (Duragesic 25mcg/ Hr Patch) 1 patch Q3DAYS TD 01/28/17 09:00 01/28/17 09:15 DC 01/28/17 08:15 Methocarbamol (Robaxin) 750 mg QID PO 01/27/17 21:00 01/27/17 19:43 Aspirin (Children'S Aspirin) 324 mg 1X ONCE PO 01/27/17 17:45 01/27/17 17:46 DC 01/27/17 17:59 Enoxaparin Sodium (Lovenox 40mg Syringe) 40 mg Q24H SQ 01/28/17 09:00 01/28/17 08:16 Morphine Sulfate 4 mg PRN Q2HR PRN IV SEVERE PAIN 01/27/17 21:15 01/28/17 08:08 Fentanyl (Duragesic 50mcg/ Hr Patch) 1 patch Q3DAYS TD 01/28/17 10:00 01/28/17 10:13 ALLERGIES ALLERGIES: Coded Allergies: No Known Drug Allergies (Unverified , 02/16/14) ROS Review of System 14 point ROS conducted with pertinent positives noted above in HPI. PHYSICAL EXAM General: Alert, Oriented X3, Cooperative, No acute distress HEENT: Atraumatic, Mucous membr. moist/pink Lungs: Clear to auscultation, Normal air movement Heart: Regular rate, Normal S1, Normal S2 Abdomen: Soft, No tenderness Extremities: No edema, Normal pulses Skin: No significant lesion Neuro: Normal speech, Sensation intact, Other (left had weakness) Psych/Mental Status: Mental status NL, Mood NL VITALS VITALS Vital Signs Date Time Temp Pulse Resp B/P (MAP) Pulse Ox O2 Delivery O2 Flow Rate FiO2 01/28/17 10:13 Room Air 01/28/17 07:00 97.8 76 18 108/67 (81) 92 97.8 LABS Lab: Laboratory Tests Test 01/27/17 13:15 01/27/17 22:30 01/28/17 04:55 White Blood Count 7.4 x10^3/uL (4.0-11.0) 7.3 x10^3/uL (4.0-11.0) Red Blood Count 5.83 x10^6/uL (4.30-5.70) 5.49 x10^6/uL (4.30-5.70) Hemoglobin 17.7 g/dL (13.0-17.5) 16.8 g/dL (13.0-17.5) Hematocrit 52.6 % (39.0-53.0) 48.5 % (39.0-53.0) Mean Corpuscular Volume 90 fL (79-100) 88 fL (79-100) Mean Corpuscular Hemoglobin 30 pg (25-35) 31 pg (25-35) Mean Corpuscular Hemoglobin Concent 34 g/dL (31-37) 35 g/dL (31-37) Red Cell Distribution Width 13.3 % (11.5-14.5) 13.8 % (11.5-14.5) Platelet Count 234 x10^3/uL (140-400) 210 x10^3/uL (140-400) Neutrophils (%) (Auto) 68 % (31-73) 48 % (31-73) Lymphocytes (%) (Auto) 25 % (24-48) 41 % (24-48) Monocytes (%) (Auto) 5 % (0-9) 8 % (0-9) Eosinophils (%) (Auto) 1 % (0-3) 2 % (0-3) Basophils (%) (Auto) 1 % (0-3) 1 % (0-3) Neutrophils # (Auto) 5.0 x10^3uL (1.8-7.7) 3.5 x10^3uL (1.8-7.7) Lymphocytes # (Auto) 1.9 x10^3/uL (1.0-4.8) 3.0 x10^3/uL (1.0-4.8) Monocytes # (Auto) 0.4 x10^3/uL (0.0-1.1) 0.6 x10^3/uL (0.0-1.1) Eosinophils # (Auto) 0.1 x10^3/uL (0.0-0.7) 0.1 x10^3/uL (0.0-0.7) Basophils # (Auto) 0.1 x10^3/uL (0.0-0.2) 0.1 x10^3/uL (0.0-0.2) Sodium Level 141 mmol/L (136-145) 141 mmol/L (136-145) Potassium Level 3.8 mmol/L (3.5-5.1) 4.0 mmol/L (3.5-5.1) Chloride Level 104 mmol/L (98-107) 104 mmol/L (98-107) Carbon Dioxide Level 26 mmol/L (21-32) 29 mmol/L (21-32) Anion Gap 11 (6-14) 8 (6-14) Blood Urea Nitrogen 11 mg/dL (8-26) 9 mg/dL (8-26) Creatinine 0.9 mg/dL (0.7-1.3) 0.9 mg/dL (0.7-1.3) Estimated GFR (Cockcroft-Gault) 91.3 91.3 Glucose Level 126 mg/dL (70-99) 101 mg/dL (70-99) Calcium Level 9.4 mg/dL (8.5-10.1) 9.0 mg/dL (8.5-10.1) Troponin I Quantitative < 0.017 ng/mL (0.000-0.055) < 0.017 ng/mL (0.000-0.055) < 0.017 ng/mL (0.000-0.055) Triglycerides Level 118 mg/dL (0-150) Cholesterol Level 174 mg/dL (0-200) LDL Cholesterol, Calculated 123 mg/dL (0-100) VLDL Cholesterol, Calculated 24 mg/dL (0-40) Non-HDL Cholesterol Calculated 147 mg/dL (0-129) HDL Cholesterol 27 mg/dL (40-60) Cholesterol/HDL Ratio 6.4 ASSESSMENT/PLAN ASSESSMENT/PLAN 1. Chest pain, non-cardiac 2. Left hand weakness; ? nerve impingement 3. Sinal stenosis, cervical radiculopathy, chronic neck and low back pain. MRI pending 4. Hyperlipidemia Recommendations Will check echo to assess LV function/ presence of WMA as per request. No further cardiac workup warranted at this time. Encouraged diet/lifestyle modification with outpatient f/u of lipids. Problems: JENNA DOBBS MD 01/28/17 2315: CARDIAC CONSULT ALLERGIES ALLERGIES: Coded Allergies: No Known Drug Allergies (Unverified , 02/16/14) ASSESSMENT/PLAN ASSESSMENT/PLAN Pt. seen and examined. Agree with above SERVICES MGR note. 46 y.o male with non-cardiac pain. normal cardiac exam. normal labs. echo wnl. Thanks for consult. Pls call q questions. Problems: LON ROYAL APRN Jan 28, 2017 10:48 JENNA DOBBS MD Jan 28, 2017 23:15
[2017-01-28 10:58] VITALS: BP 110/78
--- NOTE | 2017-01-28 11:37 | CONS ---
DATE OF CONSULTATION: LOCATION: Room 574. ATTENDING PHYSICIAN: Dr. Ho REASON FOR CONSULTATION: The patient was seen at the request of Dr. Ho for rehab evaluation. HISTORY OF PRESENT ILLNESS: This is a 46-year-old male, known to me in the past when I saw him for cervical spinal stenosis from herniated disk and he had cervical spine decompression and fusion done about 4 years ago. He has been on disability. He had residual right lower extremity mild incoordination and limps on it, but he had been doing satisfactorily until about 2-1/2 weeks ago when he caught himself from falling down with his left arm and since then he noted pain just behind left shoulder blade area and numbness and weakness in his left upper extremity. He denies any trouble with his bowel control, but admits some urinary urgency. The patient denies any significant pain in the neck itself. He had CT scan of his brain and cervical spine, which revealed normal brain and postoperative changes of anterior spinal fusion with bilateral laminectomy at C3-C4. The patient lives with his and children in [facility], had few steps to manage. The patient is not known allergic to any medication. PAST MEDICAL HISTORY: Includes lower back pain, degenerative joint disease. The patient is being evaluated for cardiac problems as he had some elevation of troponin. PHYSICAL EXAMINATION: Today, revealed a middle-aged male. He is alert, oriented to time, place, person and circumstance and follows commands appropriately. He is in no acute distress. He had some stiffness of his neck. Minimal tenderness to palpation over left cervical paraspinal muscles extending over to left posterior shoulder girdle muscles, mainly over rhomboids and subscapularis muscle area on the left side. 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 He had slightly decreased touch and pinprick sensation over left median nerve distribution when compared to ulnar nerve distribution, positive Tinel sign over left median nerve at the wrist and negative Tinel sign over left ulnar nerve at the wrist and elbow, +2 Phalen sign at left wrist. He had a previous right carpal tunnel surgery and we can see a scar in the front of right wrist. The patient had equal perception of touch and pinprick sensation in his lower extremities. Deep tendon reflexes are slightly exaggerated at both knees and ankles. I did not see any obvious weakness in his lower extremities. He walks without any difficulty, maybe slight limping on his right foot. He can walk on his tiptoes and on his heels and can walk in a straight line, one foot in front of other. He is independent with bed mobility, transfers, and walking without any assistive devices. No significant cervical paraspinal muscle spasm was noted at this time. I did not see any significant tenderness to palpation or limitation of range of motion of thoracic or lumbar spine. Straight leg raising test is negative bilaterally. ASSESSMENT: A middle-aged male with recent cervical sprain with left cervical radiculopathy. The patient is status post previous cervical spine fusion for treatment of cervical spinal stenosis with slight degree of hyperreflexia in his lower extremities and some incoordination of right lower extremity, also clinical evidence of left carpal tunnel syndrome. No evidence of left ulnar nerve compression neuropathy at the wrist or elbow at present time. Also, probable benign prostatic hypertrophy with urinary urgency. RECOMMENDATIONS: To obtain MRI scan of his cervical vertebrae to make sure he does not have any new herniated disk, to start him on Medrol Dosepak and physical therapy, to consider neurosurgical consult depending upon the MRI scan results. Dr. Ho, I appreciate asking me to participate in the care of this interesting patient. I will be glad to follow him with you as needed for his rehabilitation. ОЛЕГ APPIAH MD DR: SOPHIA/abisai JOB#: [id number] / [id number]
[2017-01-28] MEDS: METHOCARBAMOL 750 MG TABLET PO SCH ×4 (11:54→20:06)
--- NOTE | 2017-01-28 13:13 | PDOC ---
PROGRESS NOTES Chief Complaint Chief Complaint left shoulder pain, upper back pain post pulling left arm recently left arm/hand mild numbness, weakness h/o neck sx 4 years ago with c3-c6 chest pain, likely muscular skeletal pain morbid obesity plan; fu with dr. Butler, CERVICAL MRI today fu with card, echo. EKG ok fu with neuro tsh high, check t4 cont home meds, fentanyl patch 50mcg daily add pain meds dvt ppx History of Present Illness History of Present Illness ROS: no fever, chills, sob , + chest pain cont having left shoulder pain, shooting down to hand, with mild numbness and weakness + upper back pain chest pain, mild Vitals Vitals Vital Signs Date Time Temp Pulse Resp B/P (MAP) Pulse Ox O2 Delivery O2 Flow Rate FiO2 01/28/17 10:58 99.0 69 18 110/78 (89) 96 Room Air 99.0 Physical Exam Physical Exam left hand mild weakness, left shoulder and left upper back + tenderness General: Alert, Oriented X3, Cooperative, No acute distress Heart: Regular rate, Normal S1, Normal S2 Lungs: Clear Abdomen: Soft, No tenderness Extremities: No edema, Normal pulses Skin: No significant lesion Labs LABS Laboratory Tests Test 01/27/17 13:15 01/27/17 22:30 01/28/17 04:55 White Blood Count 7.4 x10^3/uL (4.0-11.0) 7.3 x10^3/uL (4.0-11.0) Red Blood Count 5.83 x10^6/uL (4.30-5.70) 5.49 x10^6/uL (4.30-5.70) Hemoglobin 17.7 g/dL (13.0-17.5) 16.8 g/dL (13.0-17.5) Hematocrit 52.6 % (39.0-53.0) 48.5 % (39.0-53.0) Mean Corpuscular Volume 90 fL (79-100) 88 fL (79-100) Mean Corpuscular Hemoglobin 30 pg (25-35) 31 pg (25-35) Mean Corpuscular Hemoglobin Concent 34 g/dL (31-37) 35 g/dL (31-37) Red Cell Distribution Width 13.3 % (11.5-14.5) 13.8 % (11.5-14.5) Platelet Count 234 x10^3/uL (140-400) 210 x10^3/uL (140-400) Neutrophils (%) (Auto) 68 % (31-73) 48 % (31-73) Lymphocytes (%) (Auto) 25 % (24-48) 41 % (24-48) Monocytes (%) (Auto) 5 % (0-9) 8 % (0-9) Eosinophils (%) (Auto) 1 % (0-3) 2 % (0-3) Basophils (%) (Auto) 1 % (0-3) 1 % (0-3) Neutrophils # (Auto) 5.0 x10^3uL (1.8-7.7) 3.5 x10^3uL (1.8-7.7) Lymphocytes # (Auto) 1.9 x10^3/uL (1.0-4.8) 3.0 x10^3/uL (1.0-4.8) Monocytes # (Auto) 0.4 x10^3/uL (0.0-1.1) 0.6 x10^3/uL (0.0-1.1) Eosinophils # (Auto) 0.1 x10^3/uL (0.0-0.7) 0.1 x10^3/uL (0.0-0.7) Basophils # (Auto) 0.1 x10^3/uL (0.0-0.2) 0.1 x10^3/uL (0.0-0.2) Sodium Level 141 mmol/L (136-145) 141 mmol/L (136-145) Potassium Level 3.8 mmol/L (3.5-5.1) 4.0 mmol/L (3.5-5.1) Chloride Level 104 mmol/L (98-107) 104 mmol/L (98-107) Carbon Dioxide Level 26 mmol/L (21-32) 29 mmol/L (21-32) Anion Gap 11 (6-14) 8 (6-14) Blood Urea Nitrogen 11 mg/dL (8-26) 9 mg/dL (8-26) Creatinine 0.9 mg/dL (0.7-1.3) 0.9 mg/dL (0.7-1.3) Estimated GFR (Cockcroft-Gault) 91.3 91.3 Glucose Level 126 mg/dL (70-99) 101 mg/dL (70-99) Calcium Level 9.4 mg/dL (8.5-10.1) 9.0 mg/dL (8.5-10.1) Troponin I Quantitative < 0.017 ng/mL (0.000-0.055) < 0.017 ng/mL (0.000-0.055) < 0.017 ng/mL (0.000-0.055) Creatine Kinase 35 U/L (39-308) Triglycerides Level 118 mg/dL (0-150) Cholesterol Level 174 mg/dL (0-200) LDL Cholesterol, Calculated 123 mg/dL (0-100) VLDL Cholesterol, Calculated 24 mg/dL (0-40) Non-HDL Cholesterol Calculated 147 mg/dL (0-129) HDL Cholesterol 27 mg/dL (40-60) Cholesterol/HDL Ratio 6.4 Vitamin B12 Level 444 pg/mL (247-911) Thyroid Stimulating Hormone (TSH) 3.895 uIU/mL (0.358-3.74) Assessment and Plan Assessmemt and Plan Problems Medical Problems: (1) Abnormal EKG Status: Acute (2) Chest pain Status: Acute (3) Chronic back pain Status: Acute (4) Left arm weakness Status: Acute Problems: Comment Review of Relevant I have reviewed the following items russell (where applicable) has been applied. Labs Laboratory Tests Test 01/27/17 13:15 01/27/17 22:30 01/28/17 04:55 White Blood Count 7.4 x10^3/uL (4.0-11.0) 7.3 x10^3/uL (4.0-11.0) Red Blood Count 5.83 x10^6/uL (4.30-5.70) 5.49 x10^6/uL (4.30-5.70) Hemoglobin 17.7 g/dL (13.0-17.5) 16.8 g/dL (13.0-17.5) Hematocrit 52.6 % (39.0-53.0) 48.5 % (39.0-53.0) Mean Corpuscular Volume 90 fL (79-100) 88 fL (79-100) Mean Corpuscular Hemoglobin 30 pg (25-35) 31 pg (25-35) Mean Corpuscular Hemoglobin Concent 34 g/dL (31-37) 35 g/dL (31-37) Red Cell Distribution Width 13.3 % (11.5-14.5) 13.8 % (11.5-14.5) Platelet Count 234 x10^3/uL (140-400) 210 x10^3/uL (140-400) Neutrophils (%) (Auto) 68 % (31-73) 48 % (31-73) Lymphocytes (%) (Auto) 25 % (24-48) 41 % (24-48) Monocytes (%) (Auto) 5 % (0-9) 8 % (0-9) Eosinophils (%) (Auto) 1 % (0-3) 2 % (0-3) Basophils (%) (Auto) 1 % (0-3) 1 % (0-3) Neutrophils # (Auto) 5.0 x10^3uL (1.8-7.7) 3.5 x10^3uL (1.8-7.7) Lymphocytes # (Auto) 1.9 x10^3/uL (1.0-4.8) 3.0 x10^3/uL (1.0-4.8) Monocytes # (Auto) 0.4 x10^3/uL (0.0-1.1) 0.6 x10^3/uL (0.0-1.1) Eosinophils # (Auto) 0.1 x10^3/uL (0.0-0.7) 0.1 x10^3/uL (0.0-0.7) Basophils # (Auto) 0.1 x10^3/uL (0.0-0.2) 0.1 x10^3/uL (0.0-0.2) Sodium Level 141 mmol/L (136-145) 141 mmol/L (136-145) Potassium Level 3.8 mmol/L (3.5-5.1) 4.0 mmol/L (3.5-5.1) Chloride Level 104 mmol/L (98-107) 104 mmol/L (98-107) Carbon Dioxide Level 26 mmol/L (21-32) 29 mmol/L (21-32) Anion Gap 11 (6-14) 8 (6-14) Blood Urea Nitrogen 11 mg/dL (8-26) 9 mg/dL (8-26) Creatinine 0.9 mg/dL (0.7-1.3) 0.9 mg/dL (0.7-1.3) Estimated GFR (Cockcroft-Gault) 91.3 91.3 Glucose Level 126 mg/dL (70-99) 101 mg/dL (70-99) Calcium Level 9.4 mg/dL (8.5-10.1) 9.0 mg/dL (8.5-10.1) Troponin I Quantitative < 0.017 ng/mL (0.000-0.055) < 0.017 ng/mL (0.000-0.055) < 0.017 ng/mL (0.000-0.055) Creatine Kinase 35 U/L (39-308) Triglycerides Level 118 mg/dL (0-150) Cholesterol Level 174 mg/dL (0-200) LDL Cholesterol, Calculated 123 mg/dL (0-100) VLDL Cholesterol, Calculated 24 mg/dL (0-40) Non-HDL Cholesterol Calculated 147 mg/dL (0-129) HDL Cholesterol 27 mg/dL (40-60) Cholesterol/HDL Ratio 6.4 Vitamin B12 Level 444 pg/mL (247-911) Thyroid Stimulating Hormone (TSH) 3.895 uIU/mL (0.358-3.74) Laboratory Tests Test 01/27/17 13:15 01/27/17 22:30 01/28/17 04:55 White Blood Count 7.4 x10^3/uL (4.0-11.0) 7.3 x10^3/uL (4.0-11.0) Red Blood Count 5.83 x10^6/uL (4.30-5.70) 5.49 x10^6/uL (4.30-5.70) Hemoglobin 17.7 g/dL (13.0-17.5) 16.8 g/dL (13.0-17.5) Hematocrit 52.6 % (39.0-53.0) 48.5 % (39.0-53.0) Mean Corpuscular Volume 90 fL (79-100) 88 fL (79-100) Mean Corpuscular Hemoglobin 30 pg (25-35) 31 pg (25-35) Mean Corpuscular Hemoglobin Concent 34 g/dL (31-37) 35 g/dL (31-37) Red Cell Distribution Width 13.3 % (11.5-14.5) 13.8 % (11.5-14.5) Platelet Count 234 x10^3/uL (140-400) 210 x10^3/uL (140-400) Neutrophils (%) (Auto) 68 % (31-73) 48 % (31-73) Lymphocytes (%) (Auto) 25 % (24-48) 41 % (24-48) Monocytes (%) (Auto) 5 % (0-9) 8 % (0-9) Eosinophils (%) (Auto) 1 % (0-3) 2 % (0-3) Basophils (%) (Auto) 1 % (0-3) 1 % (0-3) Neutrophils # (Auto) 5.0 x10^3uL (1.8-7.7) 3.5 x10^3uL (1.8-7.7) Lymphocytes # (Auto) 1.9 x10^3/uL (1.0-4.8) 3.0 x10^3/uL (1.0-4.8) Monocytes # (Auto) 0.4 x10^3/uL (0.0-1.1) 0.6 x10^3/uL (0.0-1.1) Eosinophils # (Auto) 0.1 x10^3/uL (0.0-0.7) 0.1 x10^3/uL (0.0-0.7) Basophils # (Auto) 0.1 x10^3/uL (0.0-0.2) 0.1 x10^3/uL (0.0-0.2) Sodium Level 141 mmol/L (136-145) 141 mmol/L (136-145) Potassium Level 3.8 mmol/L (3.5-5.1) 4.0 mmol/L (3.5-5.1) Chloride Level 104 mmol/L (98-107) 104 mmol/L (98-107) Carbon Dioxide Level 26 mmol/L (21-32) 29 mmol/L (21-32) Anion Gap 11 (6-14) 8 (6-14) Blood Urea Nitrogen 11 mg/dL (8-26) 9 mg/dL (8-26) Creatinine 0.9 mg/dL (0.7-1.3) 0.9 mg/dL (0.7-1.3) Estimated GFR (Cockcroft-Gault) 91.3 91.3 Glucose Level 126 mg/dL (70-99) 101 mg/dL (70-99) Calcium Level 9.4 mg/dL (8.5-10.1) 9.0 mg/dL (8.5-10.1) Troponin I Quantitative < 0.017 ng/mL (0.000-0.055) < 0.017 ng/mL (0.000-0.055) < 0.017 ng/mL (0.000-0.055) Creatine Kinase 35 U/L (39-308) Triglycerides Level 118 mg/dL (0-150) Cholesterol Level 174 mg/dL (0-200) LDL Cholesterol, Calculated 123 mg/dL (0-100) VLDL Cholesterol, Calculated 24 mg/dL (0-40) Non-HDL Cholesterol Calculated 147 mg/dL (0-129) HDL Cholesterol 27 mg/dL (40-60) Cholesterol/HDL Ratio 6.4 Vitamin B12 Level 444 pg/mL (247-911) Thyroid Stimulating Hormone (TSH) 3.895 uIU/mL (0.358-3.74) Medications Current Medications Morphine Sulfate 4 mg 1X ONCE IV Last administered on 01/27/17 15:02; Start 01/27/17 at 15:00; Stop 01/27/17 at 15:01; Status DC Morphine Sulfate 4 mg 1X ONCE IV Last administered on 01/27/17 16:15; Start 01/27/17 at 16:00; Stop 01/27/17 at 16:04; Status DC Ondansetron HCl (Zofran) 4 mg PRN Q8HRS PRN IV NAUSEA/VOMITING; Start 01/27/17 at 17:00; Stop 01/28/17 at 16:59 Morphine Sulfate 2 mg PRN Q2HR PRN IV PAIN; Start 01/27/17 at 17:00; Stop 01/27 at 21:06; Status DC Acetaminophen (Tylenol) 650 mg PRN Q4HRS PRN PO FEVER; Start 01/27/17 at 17:00 ; Stop 01/28/17 at 16:59 Nitroglycerin (Nitrostat) 0.4 mg PRN Q5MIN PRN SL CHEST PAIN Last administered on 01/27/17 17:54; Start 01/27/17 at 17:00; Stop 01/28/17 at 16:59 Docusate Sodium (Colace) 100 mg DAILY PO ; Start 01/28/17 at 09:00 Fentanyl (Duragesic 25mcg/ Hr Patch) 1 patch Q3DAYS TD Last administered on 08:15; Start 01/28/17 at 09:00; Stop 01/28/17 at 09:15; Status DC Metaxalone (Skelaxin) 800 mg BID PO ; Start 01/27/17 at 21:00; Stop 01/27/17 at 21:00; Status DC Metaxalone (Skelaxin) 800 mg TID PO ; Start 01/27/17 at 21:00; Stop 01/27/17 at 21:00; Status DC Methocarbamol (Robaxin) 750 mg QID PO Last administered on 01/28/17 11:54; Start 01/27/17 at 21:00 Oxycodone/ Acetaminophen (Percocet 10/325) 2 tab QID PO ; Start 01/27/17 at 21: 00; Stop 01/27/17 at 21:00; Status DC Oxycodone/ Acetaminophen (Percocet 7.5/ 325) 1 tab BID PO ; Start 01/27/17 at 21 :00; Status UNV Topiramate (Topamax) 100 mg DAILY PO ; Start 01/28/17 at 09:00 Polyethylene Glycol (miraLAX PACKET) 17 gm PRN DAILY PRN PO CONSTIPATION; Start 01/27/17 at 17:30 Polyethylene Glycol (miraLAX PACKET) 17 gm DAILY PO ; Start 01/28/17 at 09:00 Aspirin (Children'S Aspirin) 324 mg 1X ONCE PO Last administered on 01/27/17 17:59; Start 01/27/17 at 17:45; Stop 01/27/17 at 17:46; Status DC Enoxaparin Sodium (Lovenox Per Pharmacy Prophylaxis Dosing) 1 each PRN DAILY PRN MC SEE COMMENTS; Start 01/27/17 at 18:00 Enoxaparin Sodium (Lovenox 40mg Syringe) 40 mg Q24H SQ Last administered on 08:16; Start 01/28/17 at 09:00 Morphine Sulfate 4 mg PRN Q2HR PRN IV SEVERE PAIN Last administered on 08:08; Start 01/27/17 at 21:15 Fentanyl (Duragesic 50mcg/ Hr Patch) 1 patch Q3DAYS TD Last administered on 10:13; Start 01/28/17 at 10:00 Acetaminophen (Tylenol) 650 mg PRN Q6HRS PRN PO FEVER; Start 01/28/17 at 09:15 Ondansetron HCl (Zofran) 4 mg PRN Q6HRS PRN IV NAUSEA/VOMITING; Start 01/28/17 at 09:15 Morphine Sulfate 2 mg PRN Q2HR PRN IV PAIN; Start 01/28/17 at 09:15 Tramadol HCl (Ultram) 50 mg PRN Q6HRS PRN PO PAIN; Start 01/28/17 at 09:15 Hydralazine HCl (Apresoline) 10 mg PRN Q4HRS PRN IVP ELEVATED BP, SEE COMMENTS ; Start 01/28/17 at 09:15 Docusate Sodium (Colace) 100 mg PRN DAILY PRN PO CONSTIPATION; Start 01/28/17 at 09:15 Diazepam (Valium) 5 mg 1X ONCE PO Last administered on 01/28/17 11:54; Start 01/28/17 at 09:45; Stop 01/28/17 at 09:54; Status DC Methylprednisolone (Medrol) 8 mg BID PO Last administered on 01/28/17 11:54; Start 01/28/17 at 09:00; Stop 01/28/17 at 21:01 Methylprednisolone (Medrol) 4 mg BIDPCLD PO ; Start 01/28/17 at 12:30; Stop at 17:31 Methylprednisolone (Medrol) 4 mg TIDPC PO ; Start 01/29/17 at 08:30; Stop at 17:31 Methylprednisolone (Medrol) 8 mg QHS PO ; Start 01/29/17 at 21:00; Stop 01/29/17 at 21:01 Methylprednisolone (Medrol) 4 mg QIDAFTMEAL PO ; Start 01/30/17 at 09:00; Stop at 21:01 Methylprednisolone (Medrol) 4 mg TID PO ; Start 01/31/17 at 09:00; Stop 01/31/17 at 21:01 Methylprednisolone (Medrol) 4 mg BID PO ; Start 02/01/17 at 09:00; Stop 02/01/17 at 21:01 Methylprednisolone (Medrol) 4 mg DAILY PO ; Start 02/02/17 at 09:00; Stop at 09:01 Pantoprazole Sodium (Protonix) 40 mg DAILYAC PO ; Start 01/29/17 at 07:30 Lidocaine (Lidoderm) 1 patch DAILY TD ; Start 01/29/17 at 09:00 Active Scripts Active Reported Robaxin-750 (Methocarbamol) 750 Mg Tablet Unknown Dose PO QID Topamax (Topiramate) 25 Mg Tablet Unknown Dose PO BID Skelaxin (Metaxalone) 800 Mg Tablet 1 Tab PO TID Percocet 10-325 Mg Tablet (Oxycodone/Acetaminophen) 1 Each Tablet 2 Tab PO QID Colace (Docusate Sodium) 100 Mg Capsule 100 Mg PO Metaxalone 800 Mg Tablet 800 Mg PO BID [place] 3 1,000 Mg Softgel ([place]-3 Fatty Acids/Fish Oil) 1 Each Capsule 1 Each PO DAILY06 Magnesium (Magnesium Oxide) 400 Mg Capsule 1 Cap PO Flexi Joint Tablet (Gluc Garcia/Msm/Chondro Garcia A/C/Mn) 1 Each Tablet 1 Each PO DAILY06 Multiple Vitamin (Multivitamin With Minerals) 1 Each Tablet 1 Each PO DAILY05 Percocet 7.5-325 Mg Tablet (Oxycodone/Acetaminophen) 1 Each Tablet 1 Each PO BID FENTANYL 25mcg/hr (Fentanyl) 1 Each Patch.td72 1 Each TD Q3DAYS Topiramate 100 Mg Tablet 100 Mg PO DAILY Vitals/I & O Vital Sign - Last 24 Hours 01/27/17 01/27/17 01/27/17 01/27/17 13:15 13:42 14:12 15:02 Temp 98.9 98.9 Pulse 81 72 75 Resp 22 24 19 22 B/P (MAP) 147/85 (105) 149/86 (107) 154/84 (107) Pulse Ox 96 95 94 97 O2 Delivery Room Air Room Air Room Air Room Air 01/27/17 01/27/17 01/27/17 01/27/17 15:02 15:12 15:46 15:49 Pulse 66 67 76 Resp 11 15 20 B/P (MAP) 131/87 (102) 126/81 (96) 120/81 (94) Pulse Ox 96 95 95 98 O2 Delivery Room Air Room Air Room Air Room Air 01/27/17 01/27/17 01/27/17 01/27/17 16:15 16:16 16:46 17:16 Pulse 80 71 66 Resp 20 15 16 14 B/P (MAP) 160/70 (100) 127/87 (100) 144/97 (113) Pulse Ox 98 96 96 96 O2 Delivery Room Air Room Air Room Air Room Air 01/27/17 01/27/17 01/27/17 01/27/17 17:39 17:40 17:54 19:00 Temp 97.6 97.6 Pulse 65 62 56 68 Resp 14 18 B/P (MAP) 144/97 131/64 (86) 140/65 110/81 (91) Pulse Ox 97 94 O2 Delivery Room Air Room Air 01/27/17 01/27/17 01/27/17 01/27/17 19:48 20:00 22:16 22:51 Temp 97.6 97.9 97.6 97.9 Pulse 68 71 Resp 18 17 18 B/P (MAP) 110/81 (91) 115/84 (94) Pulse Ox 94 94 95 O2 Delivery Room Air Room Air Room Air Room Air 01/28/17 01/28/17 01/28/17 01/28/17 01:28 02:33 05:03 05:45 Temp 97.9 97.9 Pulse 63 Resp 17 18 16 16 B/P (MAP) 114/65 (81) Pulse Ox 95 94 94 94 O2 Delivery Room Air Room Air Room Air 01/28/17 01/28/17 01/28/17 01/28/17 07:00 08:00 08:08 08:15 Temp 97.8 97.8 Pulse 76 Resp 18 B/P (MAP) 108/67 (81) Pulse Ox 92 O2 Delivery Room Air Room Air Room Air Room Air 01/28/17 01/28/17 01/28/17 08:38 10:13 10:58 Temp 99.0 99.0 Pulse 69 Resp 18 B/P (MAP) 110/78 (89) Pulse Ox 96 O2 Delivery Room Air Room Air Room Air SEKOU GARCIA MD Jan 28, 2017 13:13
--- NOTE | 2017-01-28 13:56 | RAD ---
MRI Cervical Spine Without Contrast History: Left arm weakness and upper back pain, previous cervical fusion Technique: Multiplanar, multi sequential noncontrast MR imaging was performed of the cervical spine. Comparison: September 01, 2016 Findings: Exam is degraded by motion, limits accurate evaluation of the neural foramina. There again has been anterior cervical fusion C4, C5, C6. Cervical vertebral body stature and AP alignment are unchanged. There is straightening of the cervical spine. There again has been posterior decompression C3-C7. There is again posterior fusion hardware C3-C6. Exam does not accurately evaluate integrity of hardware. There are again foci of abnormal T2 and STIR hyperintense signal of cord at C5 and C6, not obviously changed. Accurate evaluation for cord signal abnormality is limited due to motion degradation. There is no new significant abnormality cervical medullary junction. There is no new significant marrow edema. C2-C3: There is facet degenerative change. There is likely mild neural foramina compromise although poorly characterized. There is likely mild uncovertebral degenerative change. Central canal is borderline 10 mm, likely a very shallow posterior protrusion present. C3-C4: Spinal canal is adequate. Neural foramina are not significantly narrowed. C4-C5: Spinal canal and neural foramina are adequate. C5-C6: Neural foramina and spinal canal are overall adequate. C6-C7: Spinal canal is adequate. There again may be mild narrowing of the left neural foramen by uncovertebral degenerative change. Right neural foramen is grossly adequate. C7-T1: There is facet degenerative change. There is buckling of the ligamentum flavum. The central canal is probably borderline on the order of 10 mm. There is a very shallow protrusion in the left lateral recess. Neural foramina are not obviously narrowed. Impression: 1. Exam is degraded by motion. There again has been anterior cervical fusion C4-C6 and also posterior decompression C3-C7 and posterior fusion hardware C3-C6. No significant cervical spinal stenosis is identified. Accurate evaluation of the neural foramina is limited due to artifact from hardware and motion, probable mild narrowing on the left at C6-7. 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 Electronically signed by: Pool Calzada MD (01/28/2017 1:52 PM) [id number]
--- NOTE | 2017-01-28 15:25 | CARD ---
APPROVED REPORT EXAM: Two-dimensional and M-mode echocardiogram with Doppler and color Doppler. Other Information Quality : Average Rhythm : NSR INDICATION Chest Pain 2D DIMENSIONS RVDd2.9 (2.9-3.5cm)Left Atrium(2D)2.9 (1.6-4.0cm) IVSd1.0 (0.7-1.1cm)Aortic Root(2D)3.7 (2.0-3.7cm) LVDd4.8 (3.9-5.9cm)LVOT Diameter2.6 (1.8-2.4cm) PWd1.0 (0.7-1.1cm)LVDs3.6 (2.5-4.0cm) FS (%) 25.3 %SV53.7 ml LVEF(%)50.9 (>50%) Aortic Valve AoV Peak Campos.100.9cm/sAoV VTI18.0cm AO Peak GR.4.1mmHgLVOT Peak Campos.90.2cm/s LVOT VTI 18.76cmAO Mean GR.2mmHg JOHNNY (VMAX)4.35py8LJP (VTI)5.33cm2 Mitral Valve MV E Mpgjsuiz00.3cm/sMV DECEL [id number] MV A Hpxkofur32.4cm/sMV [id number] E/A Ratio1.2MV A [id number] MVA (PHT)3.45cm2 TDI E/Lateral E'6.2E/Medial E'6.4 Pulmonary Valve PV Peak Miuyxedu34.7cm/sPV Peak Grad.3mmHg RVOT VTI13.8cm LEFT VENTRICLE The left ventricle is normal size. There is normal left ventricular wall thickness. Left ventricle sy stolic function is normal. The Ejection Fraction is 55%. There is normal LV segmental wall motion. Th e left ventricular diastolic function and filling is normal for age. There is no ventricular septal d efect visualized. RIGHT VENTRICLE The right ventricle is normal size. The right ventricular systolic function is normal. ATRIA The left atrium size is normal. The right atrium size is normal. The interatrial septum is intact wit h no evidence for an atrial septal defect or patent foramen ovale as noted on 2-D or Doppler imaging. AORTIC VALVE The aortic valve is normal in structure and function. The aortic valve is trileaflet. Doppler and Col or Flow revealed no significant aortic regurgitation. There is no significant aortic valvular stenosi s. MITRAL VALVE The mitral valve is normal in structure and function. There is no mitral valve stenosis. Doppler and Color Flow revealed no mitral valve regurgitation noted. TRICUSPID VALVE The tricuspid valve is normal in structure and function. Doppler and Color Flow revealed no tricuspid valve regurgitation noted. Unable to estimate PA pressure. There is no tricuspid valve stenosis. PULMONIC VALVE The pulmonic valve is not well visualized. Doppler and Color Flow revealed no pulmonic valvular regur gitation. There is no pulmonic valvular stenosis. GREAT VESSELS The aortic root is normal in size. The ascending aorta is normal in size. Pulmonary veins not well vi sualized. The IVC is normal in size and collapses >50% with inspiration. PERICARDIAL EFFUSION There is no evidence of significant pericardial effusion. Critical Notification Critical Value: No <Conclusion> Left ventricle systolic function is normal. The Ejection Fraction is 55%. There is normal LV segmental wall motion. There is no evidence of significant pericardial effusion.
[2017-01-28] MEDS: traMADol 50 MG TABLET PO PRN ×2 (15:46→21:46)
--- NOTE | 2017-01-28 18:25 | PDOC2 ---
NEUROLOGY CONSULT Date of Admission Date of Admission DATE: 01/28/17 TIME: 18:10 Reason for Consult Reason for Consult: IMPRESSION: Left thumb, index and middle fingers and left UE numbness. S/p C3-C6 anterior spine fusion. Back pain. HLD. Obesity. RECOMMENDATIONS/PLAN: Neurontin 100 mg tid, then 300 mg tid. ASA 325 mg daily. Lipitor 20 mg HS. EMG/NCS as out-patient. Patient declined brain MRI. C-spine MRI performed and no new findings. Lab: Vit B12, and CK in normal range. HISTORY OF THE PRESENT ILLNESS: 46-y-old male patient with above medical diseases was admitted due to multiple complaints. Neurology was called for consultation due to complaints of left forearm and left thumb, index and middle fingers numbness for several days. No cranial nerve abnormalities, and left LE is not involved. PAST MEDICAL HISTORY Cardiovascular: No pertinent hx Pulmonary: No pertinent hx GI: No pertinent hx Heme/Onc: No pertinent hx Hepatobiliary: No pertinent hx Psych: Anxiety, Depression Musculoskeletal: Osteoarthritis, Other (DDD, spinal stenosis, lumbar radiculopathy, chronic neck and low back pain) Rheumatologic: No pertinent hx Infectious disease: No pertinent hx ENT: No pertinent hx Renal/: No pertinent hx Endocrine: No pertinent hx Dermatology: No pertinent hx PAST SURGICAL HISTORY Appendectomy Hernia Repair Cervical fusion FAMILY HISTORY Diabetes SOCIAL HISTORY Smoke: Quit (6 years ago) ALCOHOL: none Drugs: None Lives: with Family ALLERGY: NKDA. MEDICATIONS: Refer to MAR REVIEW OF SYSTEMS: Constitutional: Over weight.. Head: No recent traumatic brain or head injury. Skin: No edema, or rash. Ear: No infection, tinnitus. Eyes: No vision loss or color blindness. Nose: No bleeding or purulent discharges. Hearing: No hearing decrease. Neck: s/p C3-C6 fusion. Cardiac: HLD. Pulmonary: No COPD. GI: No GI ulcer, GI bleeding. Urinary/genital: No dysuria, incontinence, urinary retention. Endocrinologic: Obesity. Skeletomuscular: back pain. Neurological: see HP. Psychiatric: Denies drug use/abuse. Otherwise, not [id number] review of systems. PHYSICAL EXAMINATION: General appearance is in no acute distress. HEENT: Normocephalic and nontraumatic. Eyes, nose, ears, and throat are unremarkable. Neck is supple. No lymphadenopathy. No bruits are heard over the carotid artery. No crepitus. Cardiovascular: S1, S2, regular rate and rhythm. Pulmonary: Clear to auscultation bilaterally. Abdomen: Bowel sounds are positive. Abdomen is soft, nontender, and nondistended. Extremities: No rash, lesions, or edema. No restriction of range of motion NEUROLOGICAL EXAMINATION: Alert Oriented to time, place and person. PERRL. EOMI. CN: no focal findings. Muscle tone: within normal. Muscle strength: 5 DTR: 2 Plantar reflex: Flexor response bilaterally Gait: Normal. Sensory exam: no abnormal findings. No cerebellar signs elicited. F-T-N test accurate. Current Medications Current Medications Current Medications Morphine Sulfate 4 mg 1X ONCE IV Last administered on 01/27/17 15:02; Start 01/27/17 at 15:00; Stop 01/27/17 at 15:01; Status DC Morphine Sulfate 4 mg 1X ONCE IV Last administered on 01/27/17 16:15; Start 01/27/17 at 16:00; Stop 01/27/17 at 16:04; Status DC Ondansetron HCl (Zofran) 4 mg PRN Q8HRS PRN IV NAUSEA/VOMITING; Start 01/27/17 at 17:00; Stop 01/28/17 at 14:29; Status DC Morphine Sulfate 2 mg PRN Q2HR PRN IV PAIN; Start 01/27/17 at 17:00; Stop 01/27 at 21:06; Status DC Acetaminophen (Tylenol) 650 mg PRN Q4HRS PRN PO FEVER; Start 01/27/17 at 17:00 ; Stop 01/28/17 at 14:28; Status DC Nitroglycerin (Nitrostat) 0.4 mg PRN Q5MIN PRN SL CHEST PAIN Last administered on 01/27/17 17:54; Start 01/27/17 at 17:00; Stop 01/28/17 at 16:59; Status DC Docusate Sodium (Colace) 100 mg DAILY PO ; Start 01/28/17 at 09:00 Fentanyl (Duragesic 25mcg/ Hr Patch) 1 patch Q3DAYS TD Last administered on 08:15; Start 01/28/17 at 09:00; Stop 01/28/17 at 09:15; Status DC Metaxalone (Skelaxin) 800 mg BID PO ; Start 01/27/17 at 21:00; Stop 01/27/17 at 21:00; Status DC Metaxalone (Skelaxin) 800 mg TID PO ; Start 01/27/17 at 21:00; Stop 01/27/17 at 21:00; Status DC Methocarbamol (Robaxin) 750 mg QID PO Last administered on 01/28/17 16:49; Start 01/27/17 at 21:00 Oxycodone/ Acetaminophen (Percocet 10/325) 2 tab QID PO ; Start 01/27/17 at 21: 00; Stop 01/27/17 at 21:00; Status DC Oxycodone/ Acetaminophen (Percocet 7.5/ 325) 1 tab BID PO ; Start 01/27/17 at 21 :00; Status UNV Topiramate (Topamax) 100 mg DAILY PO ; Start 01/28/17 at 09:00 Polyethylene Glycol (miraLAX PACKET) 17 gm PRN DAILY PRN PO CONSTIPATION; Start 01/27/17 at 17:30 Polyethylene Glycol (miraLAX PACKET) 17 gm DAILY PO ; Start 01/28/17 at 09:00 Aspirin (Children'S Aspirin) 324 mg 1X ONCE PO Last administered on 01/27/17 17:59; Start 01/27/17 at 17:45; Stop 01/27/17 at 17:46; Status DC Enoxaparin Sodium (Lovenox Per Pharmacy Prophylaxis Dosing) 1 each PRN DAILY PRN MC SEE COMMENTS; Start 01/27/17 at 18:00; Stop 01/28/17 at 14:28; Status DC Enoxaparin Sodium (Lovenox 40mg Syringe) 40 mg Q24H SQ Last administered on 08:16; Start 01/28/17 at 09:00 Morphine Sulfate 4 mg PRN Q2HR PRN IV SEVERE PAIN Last administered on 16:50; Start 01/27/17 at 21:15 Fentanyl (Duragesic 50mcg/ Hr Patch) 1 patch Q3DAYS TD Last administered on 10:13; Start 01/28/17 at 10:00 Acetaminophen (Tylenol) 650 mg PRN Q6HRS PRN PO FEVER; Start 01/28/17 at 09:15 Ondansetron HCl (Zofran) 4 mg PRN Q6HRS PRN IV NAUSEA/VOMITING; Start 01/28/17 at 09:15 Morphine Sulfate 2 mg PRN Q2HR PRN IV PAIN; Start 01/28/17 at 09:15 Tramadol HCl (Ultram) 50 mg PRN Q6HRS PRN PO PAIN Last administered on 15:46; Start 01/28/17 at 09:15 Hydralazine HCl (Apresoline) 10 mg PRN Q4HRS PRN IVP ELEVATED BP, SEE COMMENTS ; Start 01/28/17 at 09:15 Docusate Sodium (Colace) 100 mg PRN DAILY PRN PO CONSTIPATION; Start 01/28/17 at 09:15 Diazepam (Valium) 5 mg 1X ONCE PO Last administered on 01/28/17 11:54; Start 01/28/17 at 09:45; Stop 01/28/17 at 09:54; Status DC Methylprednisolone (Medrol) 8 mg BID PO Last administered on 01/28/17 11:54; Start 01/28/17 at 09:00; Stop 01/28/17 at 16:20; Status DC Methylprednisolone (Medrol) 4 mg BIDPCLD PO Last administered on 01/28/17 13: 31; Start 01/28/17 at 12:30; Stop 01/28/17 at 16:20; Status DC Methylprednisolone (Medrol) 4 mg TIDPC PO ; Start 01/29/17 at 08:30; Stop at 08:30; Status DC Methylprednisolone (Medrol) 8 mg QHS PO ; Start 01/29/17 at 21:00; Stop 01/29/17 at 21:00; Status DC Methylprednisolone (Medrol) 4 mg QIDAFTMEAL PO ; Start 01/30/17 at 09:00; Stop at 09:00; Status DC Methylprednisolone (Medrol) 4 mg TID PO ; Start 01/31/17 at 09:00; Stop 01/31/17 at 09:00; Status DC Methylprednisolone (Medrol) 4 mg BID PO ; Start 02/01/17 at 09:00; Stop 02/01/17 at 09:00; Status DC Methylprednisolone (Medrol) 4 mg DAILY PO ; Start 02/02/17 at 09:00; Stop at 09:00; Status DC Pantoprazole Sodium (Protonix) 40 mg DAILYAC PO ; Start 01/29/17 at 07:30 Lidocaine (Lidoderm) 1 patch DAILY TD ; Start 01/29/17 at 09:00 Acetaminophen/ Hydrocodone Bitart (Lortab 5/325) 1 tab PRN Q4HRS PRN PO PAIN; Start 01/28/17 at 13:15 Gabapentin (Neurontin) 100 mg TID PO ; Start 01/28/17 at 21:00 Active Scripts Active Reported Robaxin-750 (Methocarbamol) 750 Mg Tablet Unknown Dose PO QID Topamax (Topiramate) 25 Mg Tablet Unknown Dose PO BID Skelaxin (Metaxalone) 800 Mg Tablet 1 Tab PO TID Percocet 10-325 Mg Tablet (Oxycodone/Acetaminophen) 1 Each Tablet 2 Tab PO QID Colace (Docusate Sodium) 100 Mg Capsule 100 Mg PO Metaxalone 800 Mg Tablet 800 Mg PO BID [place] 3 1,000 Mg Softgel ([place]-3 Fatty Acids/Fish Oil) 1 Each Capsule 1 Each PO DAILY06 Magnesium (Magnesium Oxide) 400 Mg Capsule 1 Cap PO Flexi Joint Tablet (Gluc Garcia/Msm/Chondro Garcia A/C/Mn) 1 Each Tablet 1 Each PO DAILY06 Multiple Vitamin (Multivitamin With Minerals) 1 Each Tablet 1 Each PO DAILY05 Percocet 7.5-325 Mg Tablet (Oxycodone/Acetaminophen) 1 Each Tablet 1 Each PO BID FENTANYL 25mcg/hr (Fentanyl) 1 Each Patch.td72 1 Each TD Q3DAYS Topiramate 100 Mg Tablet 100 Mg PO DAILY Allergies Allergies: Coded Allergies: No Known Drug Allergies (Unverified , 02/16/14) Vitals VITALS Vital Signs Date Time Temp Pulse Resp B/P (MAP) Pulse Ox O2 Delivery O2 Flow Rate FiO2 01/28/17 17:12 96 Room Air 01/28/17 10:58 99.0 69 18 110/78 (89) 99.0 Labs Labs Laboratory Tests Test 01/27/17 13:15 01/27/17 22:30 01/28/17 04:55 White Blood Count 7.4 x10^3/uL (4.0-11.0) 7.3 x10^3/uL (4.0-11.0) Red Blood Count 5.83 x10^6/uL (4.30-5.70) 5.49 x10^6/uL (4.30-5.70) Hemoglobin 17.7 g/dL (13.0-17.5) 16.8 g/dL (13.0-17.5) Hematocrit 52.6 % (39.0-53.0) 48.5 % (39.0-53.0) Mean Corpuscular Volume 90 fL (79-100) 88 fL (79-100) Mean Corpuscular Hemoglobin 30 pg (25-35) 31 pg (25-35) Mean Corpuscular Hemoglobin Concent 34 g/dL (31-37) 35 g/dL (31-37) Red Cell Distribution Width 13.3 % (11.5-14.5) 13.8 % (11.5-14.5) Platelet Count 234 x10^3/uL (140-400) 210 x10^3/uL (140-400) Neutrophils (%) (Auto) 68 % (31-73) 48 % (31-73) Lymphocytes (%) (Auto) 25 % (24-48) 41 % (24-48) Monocytes (%) (Auto) 5 % (0-9) 8 % (0-9) Eosinophils (%) (Auto) 1 % (0-3) 2 % (0-3) Basophils (%) (Auto) 1 % (0-3) 1 % (0-3) Neutrophils # (Auto) 5.0 x10^3uL (1.8-7.7) 3.5 x10^3uL (1.8-7.7) Lymphocytes # (Auto) 1.9 x10^3/uL (1.0-4.8) 3.0 x10^3/uL (1.0-4.8) Monocytes # (Auto) 0.4 x10^3/uL (0.0-1.1) 0.6 x10^3/uL (0.0-1.1) Eosinophils # (Auto) 0.1 x10^3/uL (0.0-0.7) 0.1 x10^3/uL (0.0-0.7) Basophils # (Auto) 0.1 x10^3/uL (0.0-0.2) 0.1 x10^3/uL (0.0-0.2) Sodium Level 141 mmol/L (136-145) 141 mmol/L (136-145) Potassium Level 3.8 mmol/L (3.5-5.1) 4.0 mmol/L (3.5-5.1) Chloride Level 104 mmol/L (98-107) 104 mmol/L (98-107) Carbon Dioxide Level 26 mmol/L (21-32) 29 mmol/L (21-32) Anion Gap 11 (6-14) 8 (6-14) Blood Urea Nitrogen 11 mg/dL (8-26) 9 mg/dL (8-26) Creatinine 0.9 mg/dL (0.7-1.3) 0.9 mg/dL (0.7-1.3) Estimated GFR (Cockcroft-Gault) 91.3 91.3 Glucose Level 126 mg/dL (70-99) 101 mg/dL (70-99) Calcium Level 9.4 mg/dL (8.5-10.1) 9.0 mg/dL (8.5-10.1) Troponin I Quantitative < 0.017 ng/mL (0.000-0.055) < 0.017 ng/mL (0.000-0.055) < 0.017 ng/mL (0.000-0.055) Creatine Kinase 35 U/L (39-308) Triglycerides Level 118 mg/dL (0-150) Cholesterol Level 174 mg/dL (0-200) LDL Cholesterol, Calculated 123 mg/dL (0-100) VLDL Cholesterol, Calculated 24 mg/dL (0-40) Non-HDL Cholesterol Calculated 147 mg/dL (0-129) HDL Cholesterol 27 mg/dL (40-60) Cholesterol/HDL Ratio 6.4 Vitamin B12 Level 444 pg/mL (247-911) Thyroid Stimulating Hormone (TSH) 3.895 uIU/mL (0.358-3.74) Laboratory Tests Test 01/27/17 22:30 01/28/17 04:55 Troponin I Quantitative < 0.017 ng/mL (0.000-0.055) < 0.017 ng/mL (0.000-0.055) White Blood Count 7.3 x10^3/uL (4.0-11.0) Red Blood Count 5.49 x10^6/uL (4.30-5.70) Hemoglobin 16.8 g/dL (13.0-17.5) Hematocrit 48.5 % (39.0-53.0) Mean Corpuscular Volume 88 fL (79-100) Mean Corpuscular Hemoglobin 31 pg (25-35) Mean Corpuscular Hemoglobin Concent 35 g/dL (31-37) Red Cell Distribution Width 13.8 % (11.5-14.5) Platelet Count 210 x10^3/uL (140-400) Neutrophils (%) (Auto) 48 % (31-73) Lymphocytes (%) (Auto) 41 % (24-48) Monocytes (%) (Auto) 8 % (0-9) Eosinophils (%) (Auto) 2 % (0-3) Basophils (%) (Auto) 1 % (0-3) Neutrophils # (Auto) 3.5 x10^3uL (1.8-7.7) Lymphocytes # (Auto) 3.0 x10^3/uL (1.0-4.8) Monocytes # (Auto) 0.6 x10^3/uL (0.0-1.1) Eosinophils # (Auto) 0.1 x10^3/uL (0.0-0.7) Basophils # (Auto) 0.1 x10^3/uL (0.0-0.2) Sodium Level 141 mmol/L (136-145) Potassium Level 4.0 mmol/L (3.5-5.1) Chloride Level 104 mmol/L (98-107) Carbon Dioxide Level 29 mmol/L (21-32) Anion Gap 8 (6-14) Blood Urea Nitrogen 9 mg/dL (8-26) Creatinine 0.9 mg/dL (0.7-1.3) Estimated GFR (Cockcroft-Gault) 91.3 Glucose Level 101 mg/dL (70-99) Calcium Level 9.0 mg/dL (8.5-10.1) Creatine Kinase 35 U/L (39-308) Triglycerides Level 118 mg/dL (0-150) Cholesterol Level 174 mg/dL (0-200) LDL Cholesterol, Calculated 123 mg/dL (0-100) VLDL Cholesterol, Calculated 24 mg/dL (0-40) Non-HDL Cholesterol Calculated 147 mg/dL (0-129) HDL Cholesterol 27 mg/dL (40-60) Cholesterol/HDL Ratio 6.4 Vitamin B12 Level 444 pg/mL (247-911) Thyroid Stimulating Hormone (TSH) 3.895 uIU/mL (0.358-3.74) LEONID TALLEY MD Jan 28, 2017 18:24
[2017-01-28 19:00] VITALS: BP 118/81
[2017-01-28] MEDS ORDERED: fentaNYL 50MCG/HR PATCH 1 PATCH PATCH.TD72 TD ONE (20:00)
[2017-01-28] MEDS: GABAPENTIN 100 MG CAPSULE. PO SCH (20:06)
[2017-01-28] MEDS ORDERED: ATORVASTATIN CALCIUM 20 MG TABLET PO SCH (21:00)
[2017-01-28] MEDS: HYDROcodone/APAP 5/325MG 1 TAB TABLET PO PRN (21:46)
[2017-01-28 22:32] VITALS: BP 130/88
[2017-01-29] MEDS: HYDROcodone/APAP 5/325MG 1 TAB TABLET PO PRN ×2 (03:42→08:19)
[2017-01-29 07:00] VITALS: BP 126/79
[2017-01-29] MEDS ORDERED: PANTOPRAZOLE 40 MG TABLET.DR. PO SCH (07:30)
[2017-01-29] MEDS ORDERED: ASPIRIN 325 MG TABLET PO SCH (08:00)
[2017-01-29] MEDS: GABAPENTIN 100 MG CAPSULE. PO SCH (08:19)
[2017-01-29] MEDS: traMADol 50 MG TABLET PO PRN (08:19)
[2017-01-29] MEDS: METHOCARBAMOL 750 MG TABLET PO SCH (08:19)
[2017-01-29] MEDS: DOCUSATE SODIUM 100 MG CAPSULE. PO SCH (08:19)
[2017-01-29] MEDS: ENOXAPARIN 40 MG/0.4 ML SYRINGE. SQ SCH (08:20)
[2017-01-29] MEDS: TOPIRAMATE 25 MG TABLET. PO SCH (08:20)
[2017-01-29] MEDS: POLYETHYLENE GLYCOL 3350 17 GM PACKET. PO SCH (08:21)
[2017-01-29] MEDS ORDERED: methylPREDNISolone 4 MG TABLET. PO SCH ×2 (08:30→21:00)
[2017-01-29] MEDS ORDERED: LIDOCAINE (700MG/PATCH) PATCH. TD SCH (09:00)
--- NOTE | 2017-01-29 09:03 | PDOC ---
PROGRESS NOTES Subjective Subjective He is eager to go home. Objective Objective Vital Signs Date Time Temp Pulse Resp B/P (MAP) Pulse Ox O2 Delivery O2 Flow Rate FiO2 01/29/17 08:19 94 Room Air 01/29/17 07:00 94.5 74 20 126/79 (95) 94.5 Physical Exam Physical Exam He continues with tenderness to palpation over left posterior shoulder girdle muscles and continues with residual weakness of his hands,left >right and mild [id number] with right lower extremity while walking but is independent with his mobility and self care. Assessment Assessment Problems Medical Problems: (1) Abnormal EKG Status: Acute (2) Chest pain Status: Acute (3) Chronic back pain Status: Acute (4) Left arm weakness Status: Acute Plan Plan of Group Home when medically stable with out patient follow up. Comment Review of Relevant I have reviewed the following items russell (where applicable) has been applied. Labs Laboratory Tests Test 01/27/17 13:15 01/27/17 22:30 01/28/17 04:55 White Blood Count 7.4 x10^3/uL (4.0-11.0) 7.3 x10^3/uL (4.0-11.0) Red Blood Count 5.83 x10^6/uL (4.30-5.70) 5.49 x10^6/uL (4.30-5.70) Hemoglobin 17.7 g/dL (13.0-17.5) 16.8 g/dL (13.0-17.5) Hematocrit 52.6 % (39.0-53.0) 48.5 % (39.0-53.0) Mean Corpuscular Volume 90 fL (79-100) 88 fL (79-100) Mean Corpuscular Hemoglobin 30 pg (25-35) 31 pg (25-35) Mean Corpuscular Hemoglobin Concent 34 g/dL (31-37) 35 g/dL (31-37) Red Cell Distribution Width 13.3 % (11.5-14.5) 13.8 % (11.5-14.5) Platelet Count 234 x10^3/uL (140-400) 210 x10^3/uL (140-400) Neutrophils (%) (Auto) 68 % (31-73) 48 % (31-73) Lymphocytes (%) (Auto) 25 % (24-48) 41 % (24-48) Monocytes (%) (Auto) 5 % (0-9) 8 % (0-9) Eosinophils (%) (Auto) 1 % (0-3) 2 % (0-3) Basophils (%) (Auto) 1 % (0-3) 1 % (0-3) Neutrophils # (Auto) 5.0 x10^3uL (1.8-7.7) 3.5 x10^3uL (1.8-7.7) Lymphocytes # (Auto) 1.9 x10^3/uL (1.0-4.8) 3.0 x10^3/uL (1.0-4.8) Monocytes # (Auto) 0.4 x10^3/uL (0.0-1.1) 0.6 x10^3/uL (0.0-1.1) Eosinophils # (Auto) 0.1 x10^3/uL (0.0-0.7) 0.1 x10^3/uL (0.0-0.7) Basophils # (Auto) 0.1 x10^3/uL (0.0-0.2) 0.1 x10^3/uL (0.0-0.2) Sodium Level 141 mmol/L (136-145) 141 mmol/L (136-145) Potassium Level 3.8 mmol/L (3.5-5.1) 4.0 mmol/L (3.5-5.1) Chloride Level 104 mmol/L (98-107) 104 mmol/L (98-107) Carbon Dioxide Level 26 mmol/L (21-32) 29 mmol/L (21-32) Anion Gap 11 (6-14) 8 (6-14) Blood Urea Nitrogen 11 mg/dL (8-26) 9 mg/dL (8-26) Creatinine 0.9 mg/dL (0.7-1.3) 0.9 mg/dL (0.7-1.3) Estimated GFR (Cockcroft-Gault) 91.3 91.3 Glucose Level 126 mg/dL (70-99) 101 mg/dL (70-99) Calcium Level 9.4 mg/dL (8.5-10.1) 9.0 mg/dL (8.5-10.1) Troponin I Quantitative < 0.017 ng/mL (0.000-0.055) < 0.017 ng/mL (0.000-0.055) < 0.017 ng/mL (0.000-0.055) Creatine Kinase 35 U/L (39-308) Triglycerides Level 118 mg/dL (0-150) Cholesterol Level 174 mg/dL (0-200) LDL Cholesterol, Calculated 123 mg/dL (0-100) VLDL Cholesterol, Calculated 24 mg/dL (0-40) Non-HDL Cholesterol Calculated 147 mg/dL (0-129) HDL Cholesterol 27 mg/dL (40-60) Cholesterol/HDL Ratio 6.4 Vitamin B12 Level 444 pg/mL (247-911) 25-Hydroxy Vitamin D Total 18.1 ng/mL (30.0-100.0) Thyroid Stimulating Hormone (TSH) 3.895 uIU/mL (0.358-3.74) Medications Current Medications Morphine Sulfate 4 mg 1X ONCE IV Last administered on 01/27/17 15:02; Start 01/27/17 at 15:00; Stop 01/27/17 at 15:01; Status DC Morphine Sulfate 4 mg 1X ONCE IV Last administered on 01/27/17 16:15; Start 01/27/17 at 16:00; Stop 01/27/17 at 16:04; Status DC Ondansetron HCl (Zofran) 4 mg PRN Q8HRS PRN IV NAUSEA/VOMITING; Start 01/27/17 at 17:00; Stop 01/28/17 at 14:29; Status DC Morphine Sulfate 2 mg PRN Q2HR PRN IV PAIN; Start 01/27/17 at 17:00; Stop 01/27 at 21:06; Status DC Acetaminophen (Tylenol) 650 mg PRN Q4HRS PRN PO FEVER; Start 01/27/17 at 17:00 ; Stop 01/28/17 at 14:28; Status DC Nitroglycerin (Nitrostat) 0.4 mg PRN Q5MIN PRN SL CHEST PAIN Last administered on 01/27/17 17:54; Start 01/27/17 at 17:00; Stop 01/28/17 at 16:59; Status DC Docusate Sodium (Colace) 100 mg DAILY PO ; Start 01/28/17 at 09:00 Fentanyl (Duragesic 25mcg/ Hr Patch) 1 patch Q3DAYS TD Last administered on 08:15; Start 01/28/17 at 09:00; Stop 01/28/17 at 09:15; Status DC Metaxalone (Skelaxin) 800 mg BID PO ; Start 01/27/17 at 21:00; Stop 01/27/17 at 21:00; Status DC Metaxalone (Skelaxin) 800 mg TID PO ; Start 01/27/17 at 21:00; Stop 01/27/17 at 21:00; Status DC Methocarbamol (Robaxin) 750 mg QID PO Last administered on 01/29/17 08:19; Start 01/27/17 at 21:00 Oxycodone/ Acetaminophen (Percocet 10/325) 2 tab QID PO ; Start 01/27/17 at 21: 00; Stop 01/27/17 at 21:00; Status DC Oxycodone/ Acetaminophen (Percocet 7.5/ 325) 1 tab BID PO ; Start 01/27/17 at 21 :00; Status UNV Topiramate (Topamax) 100 mg DAILY PO Last administered on 01/29/17 08:20; Start 01/28/17 at 09:00 Polyethylene Glycol (miraLAX PACKET) 17 gm PRN DAILY PRN PO CONSTIPATION; Start 01/27/17 at 17:30 Polyethylene Glycol (miraLAX PACKET) 17 gm DAILY PO ; Start 01/28/17 at 09:00 Aspirin (Children'S Aspirin) 324 mg 1X ONCE PO Last administered on 01/27/17 17:59; Start 01/27/17 at 17:45; Stop 01/27/17 at 17:46; Status DC Enoxaparin Sodium (Lovenox Per Pharmacy Prophylaxis Dosing) 1 each PRN DAILY PRN MC SEE COMMENTS; Start 01/27/17 at 18:00; Stop 01/28/17 at 14:28; Status DC Enoxaparin Sodium (Lovenox 40mg Syringe) 40 mg Q24H SQ Last administered on 01/29 08:20; Start 01/28/17 at 09:00 Morphine Sulfate 4 mg PRN Q2HR PRN IV SEVERE PAIN Last administered on 16:50; Start 01/27/17 at 21:15 Fentanyl (Duragesic 50mcg/ Hr Patch) 1 patch Q3DAYS TD Last administered on 10:13; Start 01/28/17 at 10:00 Acetaminophen (Tylenol) 650 mg PRN Q6HRS PRN PO FEVER; Start 01/28/17 at 09:15 Ondansetron HCl (Zofran) 4 mg PRN Q6HRS PRN IV NAUSEA/VOMITING; Start 01/28/17 at 09:15 Morphine Sulfate 2 mg PRN Q2HR PRN IV PAIN; Start 01/28/17 at 09:15 Tramadol HCl (Ultram) 50 mg PRN Q6HRS PRN PO PAIN Last administered on 08:19; Start 01/28/17 at 09:15 Hydralazine HCl (Apresoline) 10 mg PRN Q4HRS PRN IVP ELEVATED BP, SEE COMMENTS ; Start 01/28/17 at 09:15 Docusate Sodium (Colace) 100 mg PRN DAILY PRN PO CONSTIPATION; Start 01/28/17 at 09:15 Diazepam (Valium) 5 mg 1X ONCE PO Last administered on 01/28/17 11:54; Start 01/28/17 at 09:45; Stop 01/28/17 at 09:54; Status DC Methylprednisolone (Medrol) 8 mg BID PO Last administered on 01/28/17 11:54; Start 01/28/17 at 09:00; Stop 01/28/17 at 16:20; Status DC Methylprednisolone (Medrol) 4 mg BIDPCLD PO Last administered on 01/28/17 13: 31; Start 01/28/17 at 12:30; Stop 01/28/17 at 16:20; Status DC Methylprednisolone (Medrol) 4 mg TIDPC PO ; Start 01/29/17 at 08:30; Stop at 08:30; Status DC Methylprednisolone (Medrol) 8 mg QHS PO ; Start 01/29/17 at 21:00; Stop 01/29/17 at 21:00; Status DC Methylprednisolone (Medrol) 4 mg QIDAFTMEAL PO ; Start 01/30/17 at 09:00; Stop at 09:00; Status DC Methylprednisolone (Medrol) 4 mg TID PO ; Start 01/31/17 at 09:00; Stop 01/31/17 at 09:00; Status DC Methylprednisolone (Medrol) 4 mg BID PO ; Start 02/01/17 at 09:00; Stop 02/01/17 at 09:00; Status DC Methylprednisolone (Medrol) 4 mg DAILY PO ; Start 02/02/17 at 09:00; Stop at 09:00; Status DC Pantoprazole Sodium (Protonix) 40 mg DAILYAC PO Last administered on 01/29/17 07:49; Start 01/29/17 at 07:30 Lidocaine (Lidoderm) 1 patch DAILY TD Last administered on 01/29/17 08:21; Start 01/29/17 at 09:00 Acetaminophen/ Hydrocodone Bitart (Lortab 5/325) 1 tab PRN Q4HRS PRN PO PAIN Last administered on 01/29/17 08:19; Start 01/28/17 at 13:15 Gabapentin (Neurontin) 100 mg TID PO Last administered on 01/29/17 08:19; Start 01/28/17 at 21:00 Aspirin (Berry Aspirin) 325 mg DAILYWBKFT PO Last administered on 01/29/17 08: 19; Start 01/29/17 at 08:00 Atorvastatin Calcium (Lipitor) 20 mg QHS PO Last administered on 01/28/17 20: 05; Start 01/28/17 at 21:00 Fentanyl (Duragesic 50mcg/ Hr Patch) 1 patch 1X ONCE TD Last administered on 20:04; Start 01/28/17 at 20:00; Stop 01/28/17 at 20:01; Status DC Active Scripts Active Reported Robaxin-750 (Methocarbamol) 750 Mg Tablet Unknown Dose PO QID Topamax (Topiramate) 25 Mg Tablet Unknown Dose PO BID Skelaxin (Metaxalone) 800 Mg Tablet 1 Tab PO TID Percocet 10-325 Mg Tablet (Oxycodone/Acetaminophen) 1 Each Tablet 2 Tab PO QID Colace (Docusate Sodium) 100 Mg Capsule 100 Mg PO Metaxalone 800 Mg Tablet 800 Mg PO BID [place] 3 1,000 Mg Softgel ([place]-3 Fatty Acids/Fish Oil) 1 Each Capsule 1 Each PO DAILY06 Magnesium (Magnesium Oxide) 400 Mg Capsule 1 Cap PO Flexi Joint Tablet (Gluc Garcia/Msm/Chondro Garcia A/C/Mn) 1 Each Tablet 1 Each PO DAILY06 Multiple Vitamin (Multivitamin With Minerals) 1 Each Tablet 1 Each PO DAILY05 Percocet 7.5-325 Mg Tablet (Oxycodone/Acetaminophen) 1 Each Tablet 1 Each PO BID FENTANYL 25mcg/hr (Fentanyl) 1 Each Patch.td72 1 Each TD Q3DAYS Topiramate 100 Mg Tablet 100 Mg PO DAILY Vitals/I & O Vital Sign - Last 24 Hours 01/28/17 01/28/17 01/28/17 01/28/17 10:13 10:58 13:31 14:13 Temp 99.0 99.0 Pulse 69 Resp 18 B/P (MAP) 110/78 (89) Pulse Ox 96 O2 Delivery Room Air Room Air Room Air Room Air 01/28/17 01/28/17 01/28/17 01/28/17 15:46 16:50 17:12 19:00 Temp 98.2 98.2 Pulse 66 Resp 18 B/P (MAP) 118/81 (93) Pulse Ox 96 96 96 O2 Delivery Room Air Room Air Room Air Room Air 01/28/17 01/28/17 01/28/17 01/28/17 20:00 20:04 21:46 21:46 Resp 16 16 17 Pulse Ox 96 96 96 O2 Delivery Room Air Room Air Room Air Room Air 01/28/17 01/28/17 01/29/17 01/29/17 22:32 22:54 00:05 03:42 Temp 98.1 98.1 Pulse 67 Resp 17 15 16 15 B/P (MAP) 130/88 (102) Pulse Ox 94 94 94 94 O2 Delivery Room Air Room Air Room Air Room Air 01/29/17 01/29/17 01/29/17 01/29/17 04:45 07:00 08:19 08:19 Temp 94.5 94.5 Pulse 74 Resp 16 20 B/P (MAP) 126/79 (95) Pulse Ox 94 95 94 94 O2 Delivery Room Air Room Air Room Air Room Air ОЛЕГ APPIAH MD Jan 29, 2017 09:03
[2017-01-29 09:06] LABS: BASO # 0.1 x10^3/uL (0.0-0.2); BASO % 1 % (0-3); EOS % 2 % (0-3); HEMATOCRIT 53.1 % (39.0-53.0); HEMOGLOBIN 17.6 g/dL (13.0-17.5); LYMPH # 2.9 x10^3/uL (1.0-4.8); LYMPH % 33 % (24-48); MEAN CORPUSCULAR HEMOGLOBIN 30 pg (25-35); MEAN CORPUSCULAR HGB CONC 33 g/dL (31-37); MEAN CORPUSCULAR VOLUME 90 fL (79-100); MONO % 7 % (0-9); NEUT % 59 % (31-73); PLATELET COUNT 183 x10^3/uL (140-400); RED BLOOD COUNT 5.87 x10^6/uL (4.30-5.70); RED CELL DISTRIBUTION WIDTH 13.6 % (11.5-14.5); WHITE BLOOD COUNT 8.9 x10^3/uL (4.0-11.0)
[2017-01-29 09:18] LABS: CREATININE 0.8 mg/dL (0.7-1.3); GFR 104.5; POTASSIUM 3.8 mmol/L (3.5-5.1)
--- NOTE | 2017-01-29 11:38 | PDOC ---
PROGRESS NOTES Chief Complaint Chief Complaint left shoulder pain, upper back pain post pulling left arm recently left arm/hand mild numbness, weakness h/o neck sx 4 years ago with c3-c6 chest pain, likely muscular skeletal pain morbid obesity History of Present Illness History of Present Illness Pt is reports mild improvement in pain with medications. Understands the need to continue treatment on out-pt basis. Vitals Vitals Vital Signs Date Time Temp Pulse Resp B/P (MAP) Pulse Ox O2 Delivery O2 Flow Rate FiO2 01/29/17 08:19 94 Room Air 01/29/17 07:00 94.5 74 20 126/79 (95) 94.5 Physical Exam Physical Exam left hand mild weakness, left shoulder and left upper back + tenderness General: Alert, Oriented X3, Cooperative, No acute distress Heart: Regular rate, Normal S1, Normal S2 Lungs: Clear Abdomen: Soft, No tenderness Extremities: No edema, Normal pulses Skin: No significant lesion Labs LABS Laboratory Tests Test 01/29/17 09:00 White Blood Count 8.9 x10^3/uL (4.0-11.0) Red Blood Count 5.87 x10^6/uL (4.30-5.70) Hemoglobin 17.6 g/dL (13.0-17.5) Hematocrit 53.1 % (39.0-53.0) Mean Corpuscular Volume 90 fL (79-100) Mean Corpuscular Hemoglobin 30 pg (25-35) Mean Corpuscular Hemoglobin Concent 33 g/dL (31-37) Red Cell Distribution Width 13.6 % (11.5-14.5) Platelet Count 183 x10^3/uL (140-400) Neutrophils (%) (Auto) 59 % (31-73) Lymphocytes (%) (Auto) 33 % (24-48) Monocytes (%) (Auto) 7 % (0-9) Eosinophils (%) (Auto) 2 % (0-3) Basophils (%) (Auto) 1 % (0-3) Neutrophils # (Auto) 5.2 x10^3uL (1.8-7.7) Lymphocytes # (Auto) 2.9 x10^3/uL (1.0-4.8) Monocytes # (Auto) 0.6 x10^3/uL (0.0-1.1) Eosinophils # (Auto) 0.1 x10^3/uL (0.0-0.7) Basophils # (Auto) 0.1 x10^3/uL (0.0-0.2) Sodium Level 134 mmol/L (136-145) Potassium Level 3.8 mmol/L (3.5-5.1) Chloride Level 103 mmol/L (98-107) Carbon Dioxide Level 21 mmol/L (21-32) Anion Gap 10 (6-14) Blood Urea Nitrogen 9 mg/dL (8-26) Creatinine 0.8 mg/dL (0.7-1.3) Estimated GFR (Cockcroft-Gault) 104.5 Glucose Level 92 mg/dL (70-99) Calcium Level 9.0 mg/dL (8.5-10.1) Free Thyroxine 1.43 ng/dL (0.76-1.46) Review of Systems Review of Systems Complains of back pain. Complains of neck pain. Complains of L hand weakness. Assessment and Plan Assessmemt and Plan Problems Medical Problems: (1) Abnormal EKG Status: Acute (2) Chest pain Status: Acute (3) Chronic back pain Status: Acute (4) Left arm weakness Status: Acute Chest pain: EKG: T wave inversion in V1 and V2, negative Echo, CXR Neck/back pain: Continue pain meds, added lidocaine patch Carpal tunnel/neuropathy: Given gabapentin HLD: Given Lipitor Dispo: DC to home today 01/29/17 Problems: Comment Review of Relevant I have reviewed the following items russell (where applicable) has been applied. Labs Laboratory Tests Test 01/27/17 13:15 01/27/17 22:30 01/28/17 04:55 01/29/17 09:00 White Blood Count 7.4 x10^3/uL (4.0-11.0) 7.3 x10^3/uL (4.0-11.0) 8.9 x10^3/uL (4.0-11.0) Red Blood Count 5.83 x10^6/uL (4.30-5.70) 5.49 x10^6/uL (4.30-5.70) 5.87 x10^6/uL (4.30-5.70) Hemoglobin 17.7 g/dL (13.0-17.5) 16.8 g/dL (13.0-17.5) 17.6 g/dL (13.0-17.5) Hematocrit 52.6 % (39.0-53.0) 48.5 % (39.0-53.0) 53.1 % (39.0-53.0) Mean Corpuscular Volume 90 fL (79-100) 88 fL (79-100) 90 fL (79-100) Mean Corpuscular Hemoglobin 30 pg (25-35) 31 pg (25-35) 30 pg (25-35) Mean Corpuscular Hemoglobin Concent 34 g/dL (31-37) 35 g/dL (31-37) 33 g/dL (31-37) Red Cell Distribution Width 13.3 % (11.5-14.5) 13.8 % (11.5-14.5) 13.6 % (11.5-14.5) Platelet Count 234 x10^3/uL (140-400) 210 x10^3/uL (140-400) 183 x10^3/uL (140-400) Neutrophils (%) (Auto) 68 % (31-73) 48 % (31-73) 59 % (31-73) Lymphocytes (%) (Auto) 25 % (24-48) 41 % (24-48) 33 % (24-48) Monocytes (%) (Auto) 5 % (0-9) 8 % (0-9) 7 % (0-9) Eosinophils (%) (Auto) 1 % (0-3) 2 % (0-3) 2 % (0-3) Basophils (%) (Auto) 1 % (0-3) 1 % (0-3) 1 % (0-3) Neutrophils # (Auto) 5.0 x10^3uL (1.8-7.7) 3.5 x10^3uL (1.8-7.7) 5.2 x10^3uL (1.8-7.7) Lymphocytes # (Auto) 1.9 x10^3/uL (1.0-4.8) 3.0 x10^3/uL (1.0-4.8) 2.9 x10^3/uL (1.0-4.8) Monocytes # (Auto) 0.4 x10^3/uL (0.0-1.1) 0.6 x10^3/uL (0.0-1.1) 0.6 x10^3/uL (0.0-1.1) Eosinophils # (Auto) 0.1 x10^3/uL (0.0-0.7) 0.1 x10^3/uL (0.0-0.7) 0.1 x10^3/uL (0.0-0.7) Basophils # (Auto) 0.1 x10^3/uL (0.0-0.2) 0.1 x10^3/uL (0.0-0.2) 0.1 x10^3/uL (0.0-0.2) Sodium Level 141 mmol/L (136-145) 141 mmol/L (136-145) 134 mmol/L (136-145) Potassium Level 3.8 mmol/L (3.5-5.1) 4.0 mmol/L (3.5-5.1) 3.8 mmol/L (3.5-5.1) Chloride Level 104 mmol/L (98-107) 104 mmol/L (98-107) 103 mmol/L (98-107) Carbon Dioxide Level 26 mmol/L (21-32) 29 mmol/L (21-32) 21 mmol/L (21-32) Anion Gap 11 (6-14) 8 (6-14) 10 (6-14) Blood Urea Nitrogen 11 mg/dL (8-26) 9 mg/dL (8-26) 9 mg/dL (8-26) Creatinine 0.9 mg/dL (0.7-1.3) 0.9 mg/dL (0.7-1.3) 0.8 mg/dL (0.7-1.3) Estimated GFR (Cockcroft-Gault) 91.3 91.3 104.5 Glucose Level 126 mg/dL (70-99) 101 mg/dL (70-99) 92 mg/dL (70-99) Calcium Level 9.4 mg/dL (8.5-10.1) 9.0 mg/dL (8.5-10.1) 9.0 mg/dL (8.5-10.1) Troponin I Quantitative < 0.017 ng/mL (0.000-0.055) < 0.017 ng/mL (0.000-0.055) < 0.017 ng/mL (0.000-0.055) Creatine Kinase 35 U/L (39-308) Triglycerides Level 118 mg/dL (0-150) Cholesterol Level 174 mg/dL (0-200) LDL Cholesterol, Calculated 123 mg/dL (0-100) VLDL Cholesterol, Calculated 24 mg/dL (0-40) Non-HDL Cholesterol Calculated 147 mg/dL (0-129) HDL Cholesterol 27 mg/dL (40-60) Cholesterol/HDL Ratio 6.4 Vitamin B12 Level 444 pg/mL (247-911) 25-Hydroxy Vitamin D Total 18.1 ng/mL (30.0-100.0) Thyroid Stimulating Hormone (TSH) 3.895 uIU/mL (0.358-3.74) Free Thyroxine 1.43 ng/dL (0.76-1.46) Laboratory Tests Test 01/29/17 09:00 White Blood Count 8.9 x10^3/uL (4.0-11.0) Red Blood Count 5.87 x10^6/uL (4.30-5.70) Hemoglobin 17.6 g/dL (13.0-17.5) Hematocrit 53.1 % (39.0-53.0) Mean Corpuscular Volume 90 fL (79-100) Mean Corpuscular Hemoglobin 30 pg (25-35) Mean Corpuscular Hemoglobin Concent 33 g/dL (31-37) Red Cell Distribution Width 13.6 % (11.5-14.5) Platelet Count 183 x10^3/uL (140-400) Neutrophils (%) (Auto) 59 % (31-73) Lymphocytes (%) (Auto) 33 % (24-48) Monocytes (%) (Auto) 7 % (0-9) Eosinophils (%) (Auto) 2 % (0-3) Basophils (%) (Auto) 1 % (0-3) Neutrophils # (Auto) 5.2 x10^3uL (1.8-7.7) Lymphocytes # (Auto) 2.9 x10^3/uL (1.0-4.8) Monocytes # (Auto) 0.6 x10^3/uL (0.0-1.1) Eosinophils # (Auto) 0.1 x10^3/uL (0.0-0.7) Basophils # (Auto) 0.1 x10^3/uL (0.0-0.2) Sodium Level 134 mmol/L (136-145) Potassium Level 3.8 mmol/L (3.5-5.1) Chloride Level 103 mmol/L (98-107) Carbon Dioxide Level 21 mmol/L (21-32) Anion Gap 10 (6-14) Blood Urea Nitrogen 9 mg/dL (8-26) Creatinine 0.8 mg/dL (0.7-1.3) Estimated GFR (Cockcroft-Gault) 104.5 Glucose Level 92 mg/dL (70-99) Calcium Level 9.0 mg/dL (8.5-10.1) Free Thyroxine 1.43 ng/dL (0.76-1.46) Medications Current Medications Morphine Sulfate 4 mg 1X ONCE IV Last administered on 01/27/17 15:02; Start 01/27/17 at 15:00; Stop 01/27/17 at 15:01; Status DC Morphine Sulfate 4 mg 1X ONCE IV Last administered on 01/27/17 16:15; Start 01/27/17 at 16:00; Stop 01/27/17 at 16:04; Status DC Ondansetron HCl (Zofran) 4 mg PRN Q8HRS PRN IV NAUSEA/VOMITING; Start 01/27/17 at 17:00; Stop 01/28/17 at 14:29; Status DC Morphine Sulfate 2 mg PRN Q2HR PRN IV PAIN; Start 01/27/17 at 17:00; Stop 01/27 at 21:06; Status DC Acetaminophen (Tylenol) 650 mg PRN Q4HRS PRN PO FEVER; Start 01/27/17 at 17:00 ; Stop 01/28/17 at 14:28; Status DC Nitroglycerin (Nitrostat) 0.4 mg PRN Q5MIN PRN SL CHEST PAIN Last administered on 01/27/17 17:54; Start 01/27/17 at 17:00; Stop 01/28/17 at 16:59; Status DC Docusate Sodium (Colace) 100 mg DAILY PO ; Start 01/28/17 at 09:00; Stop at 10:35; Status DC Fentanyl (Duragesic 25mcg/ Hr Patch) 1 patch Q3DAYS TD Last administered on 08:15; Start 01/28/17 at 09:00; Stop 01/28/17 at 09:15; Status DC Metaxalone (Skelaxin) 800 mg BID PO ; Start 01/27/17 at 21:00; Stop 01/27/17 at 21:00; Status DC Metaxalone (Skelaxin) 800 mg TID PO ; Start 01/27/17 at 21:00; Stop 01/27/17 at 21:00; Status DC Methocarbamol (Robaxin) 750 mg QID PO Last administered on 01/29/17 08:19; Start 01/27/17 at 21:00; Stop 01/29/17 at 10:35; Status DC Oxycodone/ Acetaminophen (Percocet 10/325) 2 tab QID PO ; Start 01/27/17 at 21: 00; Stop 01/27/17 at 21:00; Status DC Oxycodone/ Acetaminophen (Percocet 7.5/ 325) 1 tab BID PO ; Start 01/27/17 at 21 :00; Status UNV Topiramate (Topamax) 100 mg DAILY PO Last administered on 01/29/17 08:20; Start 01/28/17 at 09:00; Stop 01/29/17 at 10:35; Status DC Polyethylene Glycol (miraLAX PACKET) 17 gm PRN DAILY PRN PO CONSTIPATION; Start 01/27/17 at 17:30; Stop 01/29/17 at 10:35; Status DC Polyethylene Glycol (miraLAX PACKET) 17 gm DAILY PO ; Start 01/28/17 at 09:00; Stop 01/29/17 at 10:35; Status DC Aspirin (Children'S Aspirin) 324 mg 1X ONCE PO Last administered on 01/27/17 17:59; Start 01/27/17 at 17:45; Stop 01/27/17 at 17:46; Status DC Enoxaparin Sodium (Lovenox Per Pharmacy Prophylaxis Dosing) 1 each PRN DAILY PRN MC SEE COMMENTS; Start 01/27/17 at 18:00; Stop 01/28/17 at 14:28; Status DC Enoxaparin Sodium (Lovenox 40mg Syringe) 40 mg Q24H SQ Last administered on 01/29 08:20; Start 01/28/17 at 09:00; Stop 01/29/17 at 10:35; Status DC Morphine Sulfate 4 mg PRN Q2HR PRN IV SEVERE PAIN Last administered on 16:50; Start 01/27/17 at 21:15; Stop 01/29/17 at 10:35; Status DC Fentanyl (Duragesic 50mcg/ Hr Patch) 1 patch Q3DAYS TD Last administered on 10:13; Start 01/28/17 at 10:00; Stop 01/29/17 at 10:35; Status DC Acetaminophen (Tylenol) 650 mg PRN Q6HRS PRN PO FEVER; Start 01/28/17 at 09:15 ; Stop 01/29/17 at 10:35; Status DC Ondansetron HCl (Zofran) 4 mg PRN Q6HRS PRN IV NAUSEA/VOMITING; Start 01/28/17 at 09:15; Stop 01/29/17 at 10:35; Status DC Morphine Sulfate 2 mg PRN Q2HR PRN IV PAIN; Start 01/28/17 at 09:15; Stop at 10:35; Status DC Tramadol HCl (Ultram) 50 mg PRN Q6HRS PRN PO PAIN Last administered on 08:19; Start 01/28/17 at 09:15; Stop 01/29/17 at 10:35; Status DC Hydralazine HCl (Apresoline) 10 mg PRN Q4HRS PRN IVP ELEVATED BP, SEE COMMENTS ; Start 01/28/17 at 09:15; Stop 01/29/17 at 10:35; Status DC Docusate Sodium (Colace) 100 mg PRN DAILY PRN PO CONSTIPATION; Start 01/28/17 at 09:15; Stop 01/29/17 at 10:35; Status DC Diazepam (Valium) 5 mg 1X ONCE PO Last administered on 01/28/17 11:54; Start 01/28/17 at 09:45; Stop 01/28/17 at 09:54; Status DC Methylprednisolone (Medrol) 8 mg BID PO Last administered on 01/28/17 11:54; Start 01/28/17 at 09:00; Stop 01/28/17 at 16:20; Status DC Methylprednisolone (Medrol) 4 mg BIDPCLD PO Last administered on 01/28/17 13: 31; Start 01/28/17 at 12:30; Stop 01/28/17 at 16:20; Status DC Methylprednisolone (Medrol) 4 mg TIDPC PO ; Start 01/29/17 at 08:30; Stop at 08:30; Status DC Methylprednisolone (Medrol) 8 mg QHS PO ; Start 01/29/17 at 21:00; Stop 01/29/17 at 21:00; Status DC Methylprednisolone (Medrol) 4 mg QIDAFTMEAL PO ; Start 01/30/17 at 09:00; Stop at 09:00; Status DC Methylprednisolone (Medrol) 4 mg TID PO ; Start 01/31/17 at 09:00; Stop 01/31/17 at 09:00; Status DC Methylprednisolone (Medrol) 4 mg BID PO ; Start 02/01/17 at 09:00; Stop 02/01/17 at 09:00; Status DC Methylprednisolone (Medrol) 4 mg DAILY PO ; Start 02/02/17 at 09:00; Stop at 09:00; Status DC Pantoprazole Sodium (Protonix) 40 mg DAILYAC PO Last administered on 01/29/17 07:49; Start 01/29/17 at 07:30; Stop 01/29/17 at 10:35; Status DC Lidocaine (Lidoderm) 1 patch DAILY TD Last administered on 01/29/17 08:21; Start 01/29/17 at 09:00; Stop 01/29/17 at 10:35; Status DC Acetaminophen/ Hydrocodone Bitart (Lortab 5/325) 1 tab PRN Q4HRS PRN PO PAIN Last administered on 01/29/17 08:19; Start 01/28/17 at 13:15; Stop 01/29/17 at 10 :35; Status DC Gabapentin (Neurontin) 100 mg TID PO Last administered on 01/29/17 08:19; Start 01/28/17 at 21:00; Stop 01/29/17 at 10:35; Status DC Aspirin (Berry Aspirin) 325 mg DAILYWBKFT PO Last administered on 01/29/17 08: 19; Start 01/29/17 at 08:00; Stop 01/29/17 at 10:35; Status DC Atorvastatin Calcium (Lipitor) 20 mg QHS PO Last administered on 01/28/17 20: 05; Start 01/28/17 at 21:00; Stop 01/29/17 at 10:35; Status DC Fentanyl (Duragesic 50mcg/ Hr Patch) 1 patch 1X ONCE TD Last administered on 20:04; Start 01/28/17 at 20:00; Stop 01/28/17 at 20:01; Status DC Active Scripts Active Reported Robaxin-750 (Methocarbamol) 750 Mg Tablet Unknown Dose PO QID Topamax (Topiramate) 25 Mg Tablet Unknown Dose PO BID Skelaxin (Metaxalone) 800 Mg Tablet 1 Tab PO TID Percocet 10-325 Mg Tablet (Oxycodone/Acetaminophen) 1 Each Tablet 2 Tab PO QID Colace (Docusate Sodium) 100 Mg Capsule 100 Mg PO Metaxalone 800 Mg Tablet 800 Mg PO BID Robinson 3 1,000 Mg Softgel (Robinson-3 Fatty Acids/Fish Oil) 1 Each Capsule 1 Each PO DAILY06 Magnesium (Magnesium Oxide) 400 Mg Capsule 1 Cap PO Flexi Joint Tablet (Gluc Garcia/Msm/Chondro Garcia A/C/Mn) 1 Each Tablet 1 Each PO DAILY06 Multiple Vitamin (Multivitamin With Minerals) 1 Each Tablet 1 Each PO DAILY05 Percocet 7.5-325 Mg Tablet (Oxycodone/Acetaminophen) 1 Each Tablet 1 Each PO BID FENTANYL 25mcg/hr (Fentanyl) 1 Each Patch.td72 1 Each TD Q3DAYS Topiramate 100 Mg Tablet 100 Mg PO DAILY Vitals/I & O Vital Sign - Last 24 Hours 01/28/17 01/28/17 01/28/17 01/28/17 13:31 14:13 15:46 16:50 Pulse Ox 96 O2 Delivery Room Air Room Air Room Air Room Air 01/28/17 01/28/17 01/28/17 01/28/17 17:12 19:00 20:00 20:04 Temp 98.2 98.2 Pulse 66 Resp 18 16 B/P (MAP) 118/81 (93) Pulse Ox 96 96 96 O2 Delivery Room Air Room Air Room Air Room Air 01/28/17 01/28/17 01/28/17 01/28/17 21:46 21:46 22:32 22:54 Temp 98.1 98.1 Pulse 67 Resp 17 17 15 B/P (MAP) 130/88 (102) Pulse Ox 96 96 94 94 O2 Delivery Room Air Room Air Room Air Room Air 01/29/17 01/29/17 01/29/17 01/29/17 00:05 03:42 04:45 07:00 Temp 94.5 94.5 Pulse 74 Resp 16 15 16 20 B/P (MAP) 126/79 (95) Pulse Ox 94 94 94 95 O2 Delivery Room Air Room Air Room Air Room Air 01/29/17 01/29/17 01/29/17 08:00 08:19 08:19 Pulse Ox 94 94 O2 Delivery Room Air Room Air Room Air TAMEKA GUTIÉRREZ III, DO Jan 29, 2017 11:38
[2017-01-30] MEDS ORDERED: methylPREDNISolone 4 MG TABLET. PO SCH (09:00)
[2017-01-31] MEDS ORDERED: methylPREDNISolone 4 MG TABLET. PO SCH (09:00)
[2017-02-01] MEDS ORDERED: methylPREDNISolone 4 MG TABLET. PO SCH (09:00)
--- NOTE | 2017-02-01 13:27 | DS ---
DATE OF DISCHARGE: 01/29/2017 ADMISSION DIAGNOSES: Back pain and left upper extremity weakness. DISCHARGE DIAGNOSIS: Resolving chronic back pain. HOSPITAL COURSE: The patient is a pleasant 46-year-old male who presented with acute on chronic back pain. He was admitted. We consulted Dr. Butler and Dr. Coles. We did physical therapy, occupational therapy, he got an injection. Basically, his symptoms resolved. We discharged to home. DISPOSITION: Home. ACTIVITY: As tolerated. DIET: Low sodium. MEDICATIONS: Please see the MRAD. TOTAL TIME: 37 minutes. TAMEKA GUTIÉRREZ DO DR: JOSE/abisai JOB#: [id number] / [id number]
[2017-02-02] MEDS ORDERED: methylPREDNISolone 4 MG TABLET. PO SCH (09:00)
== END 2017-01-29 10:35 | disposition home or self-care (01) | DRG 74 ==
LOC: ER 13:03 → 6 SOUTH 16:41 → 5 SOUTH 19:03
PROVIDERS: ADMIT Internal Medicine; ATTEND Internal Medicine
DX: M54.12 Radiculopathy, cervical region (principal); E66.01 Morbid (severe) obesity due to excess calories; R07.89 Other chest pain; Z68.35 Body mass index [BMI] 35.0-35.9, adult; E78.5 Hyperlipidemia, unspecified; G62.9 Polyneuropathy, unspecified; G89.29 Other chronic pain; N40.1 Benign prostatic hyperplasia with lower urinary tract symptoms; Z68.36 Body mass index [BMI] 36.0-36.9, adult; Z82.3 Family history of stroke; Z83.3 Family history of diabetes mellitus; Z98.1 Arthrodesis status; F32.9 Major depressive disorder, single episode, unspecified; F41.9 Anxiety disorder, unspecified; S13.4XXA Sprain of ligaments of cervical spine, initial encounter; M19.90 Unspecified osteoarthritis, unspecified site; Z90.89 Acquired absence of other organs; R94.31 Abnormal electrocardiogram [ECG] [EKG]
CPT/HCPCS: 36415; 70450; 71010; 72125; 72141; 80048; 80061; 82306; 82550; 82607; 84439; 84443; 84484; 85025; 93005; 93306; 96374; 96376; J1650; J2270; J7509; 99285-25